=== PATIENT | male | born 1960 | race Caucasian/White ===

== ENCOUNTER 2017-02-15 10:14 | Emergency (ER) | payer BC ==
--- NOTE | 2017-02-15 10:28 | ED Physician Documentation ---
PD HPI ABD PAIN - Stated complaint Stated Complaint: VOMITING/ABD/BACK PX - Chief complaint Chief Complaint: Abd Pain - History obtained from History obtained from: Patient - History of Present Illness Timing - onset: Today Timing - duration: Hours (about 5 hours QUALITY DIRECTOR, abrupt onset.) Timing - details: Abrupt onset, Still present Quality: Aching, Sharp, Pain Location: RLQ Radiation: Right flank Improved by: No: Eating, Laying still, Vomiting, Position Worsened by: No: Eating, Moving, Breathing, Position Associated symptoms: Nausea, Vomiting, Testicular pain (but no swelling). No: Fever, Hematemesis, Diarrhea Similar symptoms before: Diagnosis (kidney stone in the past, once to ED and a few small ones passed at home.) Recently seen: Not recently seen Review of Systems Constitutional: denies: Fever, Chills Nose: denies: Rhinorrhea / runny nose, Congestion Throat: denies: Sore throat Cardiac: denies: Chest pain / pressure Respiratory: denies: Cough GI: reports: Nausea, Vomiting. denies: Abdominal Pain, Diarrhea : denies: Dysuria, Frequency Skin: denies: Rash, Lesions PD PAST MEDICAL HISTORY - Past Medical History Cardiovascular: Other Respiratory: None Endocrine/Autoimmune: None GI: GERD : None HEENT: None Psych: None Musculoskeletal: None Derm: Eczema - Present Medications Home Medications: Ambulatory Orders Medication Instructions Recorded Confirmed Aspirin [Aspir-Low] 81 mg ORAL DAILY 04/11/16 02/15/17 Niacin (Inositol Niacinate) 500 mg ORAL DAILY 04/11/16 02/15/17 [Niacin 500 mg Capsule] Omeprazole Magnesium [Prilosec] 2.5 mg PO DAILY 04/11/16 02/15/17 Naproxen [Naprosyn] 500 mg PO BID PRN #20 tablet 02/15/17 Ondansetron HCl [Zofran] 4 mg PO Q6H PRN #20 tablet 02/15/17 Oxycodone HCl/Acetaminophen 1 each PO Q6H PRN #20 tablet 02/15/17 [Percocet 5-325 mg Tablet] Tamsulosin [Flomax] 0.4 mg PO DAILY #5 capsule 02/15/17 - Allergies Allergies/Adverse Reactions: Allergies Allergy/AdvReac Type Severity Reaction Status Date / Time No Known Drug Allergies Allergy Verified 02/15/17 10:20 PD ED PE NORMAL - Vitals Vital signs reviewed: Yes - General General: Alert and oriented X 3, Well developed/nourished, Other (appears in marked pain, moving in position to try to find comfort. ) - HEENT HEENT: Pharynx benign - Neck Neck: Supple, no meningeal sign, No adenopathy - Cardiac Cardiac: RRR, No murmur - Respiratory Respiratory: Clear bilaterally - Abdomen Abdomen: Normal bowel sounds, Soft, Non tender, Non distended, No organomegaly - Male Male : Other (no inguinal hernias, testicle pain nor swelling. ) - Back Back: No spinal TTP, Other (right CVA tender to percussion. ) - Derm Derm: Normal color, Warm and dry, No rash - Extremities Extremities: Normal ROM s pain, No edema, No calf tenderness / cord - Neuro Neuro: Alert and oriented X 3, No motor deficit, Normal speech - Psych Psych: Normal mood Results - Vitals Vitals: Vital Signs - 24 hr 02/15/17 02/15/17 02/15/17 10: 12:27 13:25 Temperature 36.8 C Heart Rate 69 70 76 Respiratory 18 18 15 Rate Blood Pressure 162/102 H 150/83 H 142/78 H O2 Saturation 100 98 99 Oxygen O2 Source Room air - Labs Labs: Laboratory Tests 02/15/17 11:40 Urine Color YELLOW Urine Clarity CLEAR Urine pH 7.5 Ur Specific [place] 1.015 Urine Protein NEGATIVE Urine Glucose (UA) NEGATIVE Urine Ketones 15 H Urine Occult Blood LARGE H Urine Nitrite NEGATIVE Urine Bilirubin NEGATIVE Urine Urobilinogen 0.2 (NORMAL) Ur Leukocyte Esterase NEGATIVE Urine RBC TNTC H Urine WBC 0-3 Ur Squamous Epith Cells FEW Squamous Urine Bacteria Rare Urine Mucus Few Strands Ur Microscopic Review INDICATED Urine Culture Comments NOT INDICATED PD MEDICAL DECISION MAKING - ED course Complexity details: reviewed results, re-evaluated patient (pain down to mild/ tolerable level and he would like to head home. ), considered differential (has had kidney stones in past and feels similar. Has some blood in urine, no signs of infection. Pain improved with IV meds. pain is in flank but also RLQ abd, so presume stone is well down the ureter. So can treat empirically rather than CT/ etc. Shared decision process with patient and opted for treating as stone and giving it time. ), d/w patient Departure - Departure Disposition: 01 Home, Self Care Clinical Impression: Right sided abdominal pain, Ureterolithiasis Condition: Stable Record reviewed to determine appropriate education?: Yes Instructions: ED Stone Renal W Colic Follow-Up: Vicente Moran MD [Primary Care Provider] - [facility] [Provider Group] Prescriptions: Naproxen [Naprosyn] 500 mg PO BID PRN #20 tablet PRN Reason: Pain Ondansetron HCl [Zofran] 4 mg PO Q6H PRN #20 tablet PRN Reason: Nausea / Vomiting Oxycodone HCl/Acetaminophen [Percocet 5-325 mg Tablet] 1 each PO Q6H PRN #20 tablet PRN Reason: Pain Tamsulosin [Flomax] 0.4 mg PO DAILY #5 capsule Comments: Stay adequately hydrated. Naproxen 500 mg twice daily for inflammation. Tamsulosin daily to help reduce ureter spasms. Use Percocet if needed for pain with ondansetron if needed for nausea along with it. Recheck if not fully improved over the next couple of days. If not fully improved, follow-up with urology, call for an appointment. If he gets severe again, return to us for medications as needed. Discharge Date/Time: 02/15/17 13:35
[2017-02-15] MEDS ORDERED: KETOROLAC 30 MG/ML VIAL IVP STA (10:43)
[2017-02-15] MEDS ORDERED: fentaNYL 100 MCG/2 ML VIAL IVP STA ×2 (10:43→12:03)
[2017-02-15] MEDS ORDERED: SODIUM CHLORIDE 0.9% 1,000 ML IV ONE (10:43)
[2017-02-15] MEDS ORDERED: ONDANSETRON 4 MG/2 ML VIAL IVP STA (10:43)
[2017-02-15] MEDS ORDERED: fentaNYL 100 MCG/2 ML VIAL ONE ×2 (10:49→12:06)
[2017-02-15] MEDS ORDERED: SODIUM CHLORIDE FLUSH 0.9% 10 ML SYRINGE IVP ONE ×2 (10:49→12:05)
[2017-02-15] MEDS ORDERED: ONDANSETRON 4 MG/2 ML VIAL ONE (10:50)
[2017-02-15] MEDS ORDERED: KETOROLAC 30 MG/ML VIAL ONE (10:50)
[2017-02-15] MEDS ORDERED: TAMSULOSIN 0.4 MG CAPSULE PO STA (12:03)
[2017-02-15 12:07] LABS: BILIRUBIN,URINE NEGATIVE (NEGATIVE); PH,URINE 7.5 PH (5.0-7.5)
[2017-02-15 12:08] LABS: UA w/ MICROSCOPIC CHARGE YES
[2017-02-15] MEDS ORDERED: TAMSULOSIN 0.4 MG CAPSULE ONE (12:12)
[2017-02-15 12:24] LABS: UR CULTURE IF IND NOT INDICATED; WBC,URINE 0-3 /HPF (0-3)
[2017-02-15 13:39] VITALS: BP 142/78
== END 2017-02-15 13:35 | disposition home or self-care (01) ==
LOC: ED 10:14
DX: N20.1 Calculus of ureter (principal); Z79.82 Long term (current) use of aspirin
CPT/HCPCS: 81001; 96361; 96374; 96375; 96376; 99284; A9270; 81003; 87086

== ENCOUNTER 2019-11-12 09:50 | Outpatient (CLI) | payer BC | END 2019-11-12 23:59 | disposition home or self-care (01) | LOC: COV 09:50 | PROVIDERS: ATTEND Family Medicine | DX: R05 Cough (principal); J02.9 Acute pharyngitis, unspecified; R09.81 Nasal congestion; Z20.828 Contact with and (suspected) exposure to other viral communicable diseases ==

== ENCOUNTER 2020-01-15 12:58 | Outpatient (CLI) | payer BC | END 2020-01-15 12:59 | disposition home or self-care (01) | LOC: COV 12:58 | PROVIDERS: ATTEND Family Medicine | DX: Z20.828 Contact with and (suspected) exposure to other viral communicable diseases (principal) ==

== ENCOUNTER 2020-03-04 11:16 | Outpatient (CLI) | payer BC | END 2020-03-04 11:17 | disposition home or self-care (01) | LOC: COV 11:16 | PROVIDERS: ATTEND Family Medicine | DX: Z20.828 Contact with and (suspected) exposure to other viral communicable diseases (principal) ==

== ENCOUNTER 2020-04-20 10:39 | Outpatient (CLI) | payer BC ==
[2020-04-20 15:33] LABS: BASOPHILS # (AUTO) 0.1 10^3/uL (0.0-0.1); BASOPHILS % (AUTO) 0.9 %; EOSINOPHILS # (AUTO) 0.2 10^3/uL (0.0-0.7); HGB - HEMOGLOBIN 15.6 g/dL (14.0-18.0); LYMPHOCYTES # (AUTO) 1.2 10^3/uL (1.5-3.5); MEAN CORPUSCULAR HEMOGLOBIN 28.7 pg (27.0-31.0); MEAN CORPUSCULAR HGB CONC 33.1 g/dL (32.0-36.0); MEAN CORPUSCULAR VOLUME 86.8 fL (80.0-94.0); MEAN PLATELET VOLUME 10.2 fL (7.4-11.4); MONOCYTES # (AUTO) 0.5 10^3/uL (0.0-1.0); MONOCYTES % (AUTO) 8.3 %; NEUTROPHILS # (AUTO) 3.9 10^3/uL (1.5-6.6); NEUTROPHILS % (AUTO) 67.5 %; PLT - PLATELET COUNT 297 10^3/uL (130-450); RED BLOOD COUNT 5.44 10^6/uL (4.70-6.10); RED CELL DISTRIBUTION WIDTH 12.4 % (12.0-15.0); WHITE BLOOD COUNT 5.8 x10^3/uL (4.8-10.8)
[2020-04-20 15:43] LABS: ALBUMIN 4.4 g/dL (3.2-5.5); ALBUMIN/GLOBULIN RATIO 1.5 (1.0-2.2); ALKALINE PHOSPHATASE 99 IU/L (42-121); ALT ALANINE AMINOTRANSFERASE 34 IU/L (10-60); AST ASPARTATE AMINOTRANSFERASE 25 IU/L (10-42); BILIRUBIN,TOTAL 0.8 mg/dL (0.2-1.0); BUN - BLOOD UREA NITROGEN 14 mg/dL (6-20); CALCIUM 9.6 mg/dL (8.5-10.3); CARBON DIOXIDE - CO2 29 mmol/L (21-32); CHLORIDE 101 mmol/L (101-111); CHOL/HDL RATIO 5.9 (<5.0); CHOLESTEROL 207 mg/dL; CREATININE 1.1 mg/dL (0.6-1.2); GLUCOSE 94 mg/dL (70-100); HDL CHOLESTEROL 35 mg/dL; LDL CHOLESTEROL,CALCULATED 115 mg/dL; LDL/HDL RATIO 3.3 (<3.6); SODIUM 139 mmol/L (135-145); TOTAL PROTEIN 7.4 g/dL (6.7-8.2); VLDL CHOLESTEROL 57 mg/dL
== END 2020-04-20 10:40 | disposition home or self-care (01) ==
LOC: LAB.S 10:39
PROVIDERS: ATTEND Physician Assistant
DX: Z00.00 Encounter for general adult medical examination without abnormal findings (principal); N42.89 Other specified disorders of prostate; Z79.899 Other long term (current) drug therapy; I10 Essential (primary) hypertension; G43.909 Migraine, unspecified, not intractable, without status migrainosus; E78.9 Disorder of lipoprotein metabolism, unspecified; E78.5 Hyperlipidemia, unspecified
CPT/HCPCS: 36415; 80053; 80061; 83721; 84153; 84443; 85025

== ENCOUNTER 2020-05-05 10:45 | Outpatient (CLI) | payer BC ==
[2020-05-11 18:52] LABS: SPECIMEN SOURCE RENAL; STONE WEIGHT 0.056 g
== END 2020-05-05 23:59 ==
LOC: LAB.R 10:45
PROVIDERS: ATTEND Internal Medicine
DX: N20.0 Calculus of kidney (principal); R31.0 Gross hematuria
CPT/HCPCS: 82365

== ENCOUNTER 2020-05-06 08:45 | Outpatient (CLI) | payer BC ==
--- NOTE | 2020-05-06 09:35 | CT Report ---
PROCEDURE: Abdomen/Pelvis WO INDICATIONS: GROSS HEMATURIA TECHNIQUE: Noncontrast 5 mm thick sections acquired from the diaphragms to the symphysis. 5 mm coronal and sagi ttal reformats were then performed. For radiation dose reduction, the following was used: automated exposure control, adjustment of mA and/or kV according to patient size. COMPARISON: None. FINDINGS: Image quality: Excellent. ABDOMEN: Lung bases: Lung bases are clear. Heart size is normal. Solid organs: Liver and spleen are normal in size. Gallbladder is unremarkable. Pancreas is normal in contours. No adrenal nodules. There are innumerable bilateral nonobstructive renal stones. The l argest right renal stone is approximately 4 mm. Multiple 6 mm left renal stones are present. Again, t hese stones are innumerable. There is mild right hydronephrosis and mild dilatation of the proximal r ight ureter without visualization of a opaque ureteral stone. No ureteral stones are identified. Ther e are bilateral calcified phleboliths in the pelvis. Peritoneum and bowel: Small hiatal hernia. Unenhanced bowel loops demonstrate normal wall thickness and caliber. No free fluid or air. Extensive sigmoid diverticulosis without evidence of diverticuli tis. Nodes and vessels: No retroperitoneal or mesenteric adenopathy by size criteria. Aorta and inferior vena cava are normal in caliber. Miscellaneous: No ventral hernias. PELVIS: Genitourinary: Bladder wall thickness is normal. Miscellaneous: Small bilateral fat-containing inguinal hernias. No inguinal adenopathy. Bones: No suspicious bony lesions. No vertebral body compression fractures. IMPRESSION: 1. There are innumerable bilateral nonobstructing renal stones. 2. There is mild right hydronephrosis and proximal right hydroureter without identification of a radi opaque ureteral stone. 3. Extensive sigmoid diverticulosis. 4. Small bilateral fat-containing hernias. Comment: Consider CT IVP to evaluate the right ureter. Reviewed by: Kishor Pacheco MD on 05/06/2020 9:33 AM [facility] Approved by: Kishor Pacheco MD on 05/06/2020 9:33 AM [facility] Station ID: [id number]
== END 2020-05-06 08:46 | disposition home or self-care (01) ==
LOC: DI 08:45
PROVIDERS: ATTEND Physician Assistant Medical
DX: R31.0 Gross hematuria (principal); N20.0 Calculus of kidney; N13.30 Unspecified hydronephrosis
CPT/HCPCS: 74176

== ENCOUNTER 2020-06-25 09:21 | Outpatient (CLI) | payer BC ==
[2020-06-25] MEDS ORDERED: IOVERSOL 320 100 ML VIAL IVP ONE ×2 (09:38→09:46)
--- NOTE | 2020-06-25 13:33 | CT Report ---
PROCEDURE: IVP INDICATIONS: HX OF GROSS HEMATURIA, NEPHROLITHIASIS CONTRAST: IV CONTRAST: Optiray 320 ml: 140 PO CONTRAST: *NO PO CONTRAST TECHNIQUE: After the administration of intravenous contrast, 5 mm thick sections acquired from the diaphragms to the symphysis. 5 mm thick coronal and sagittal reformats were acquired. For radiation dose reducti on, the following was used: automated exposure control, adjustment of mA and/or kV according to berna ent size. COMPARISON: CT abdomen/pelvis 05/06/2020 reviewed.. FINDINGS: Image quality: Excellent. Lung bases: Lung bases are clear. Heart size is normal. Urinary system: Both kidneys are normal in size and enhancement. Contrast-filled renal calyces are normal in morphology, but there is a 4 mm nonobstructive calculus at the proximal ureter on the left, seen on CT series 4 image 48. Additional urinary tract stones are seen as was previously the case wi thin the collecting system of each kidney, ranging from 1 to 3 mm in diameter.. Contrast filled port ions of both ureters are normal in caliber. Bladder wall thickness is normal anteriorly but there ap pears to be a polypoid mass at the posterior bladder wall, centered just to the right of midline aria uring approximately 1.2 x 1.5 cm.. Solid organs: Liver and spleen are normal in size and enhancement. Gallbladder appears normal Bili tony system is non dilated. Pancreas enhances normally. No adrenal nodules. Peritoneum and bowel: Bowel loops demonstrate normal wall thickness and caliber. No free fluid or a ir. Nodes and vessels: No retroperitoneal or mesenteric adenopathy by size criteria. Aorta and inferior vena cava are normal in size. Abdominal wall: No ventral hernias. Pelvis: No pathologic free pelvic fluid. No inguinal hernias or adenopathy. Bones: No suspicious bony lesions. No vertebral body compression fractures. IMPRESSION: Small nonobstructive bilateral renal collecting system calculi have been present, slight ly greater in number on the left than the right, but currently there is a 4 x 4 mm calculus within th e proximal ureter of the left kidney, which is not producing appreciable asymmetric dilatation of the left collecting system and renal pelvis at this time. This calculus was not located in that position 05/06/2020. Polypoid masslike structure seen at the posterior midline bladder wall measuring 1.2 x 1.5 cm, and po ssibly a manifestation of urothelial malignancy. Urology consultation and retrograde cystoscopy likel y is warranted given this appearance. Reviewed by: Bassam Brooks MD on 06/25/2020 1:32 PM PST Approved by: Bassam Brooks MD on 06/25/2020 1:32 PM PST Station ID: [id number]
== END 2020-06-25 09:22 | disposition home or self-care (01) ==
LOC: DI 09:21
PROVIDERS: ATTEND Urology
DX: N20.2 Calculus of kidney with calculus of ureter (principal); R31.0 Gross hematuria; N32.89 Other specified disorders of bladder
CPT/HCPCS: 74178; Q9967

== ENCOUNTER 2020-10-02 11:20 | Outpatient (CLI) | payer BC ==
[2020-10-02 11:35] LABS: BASOPHILS # (AUTO) 0.1 10^3/uL (0.0-0.1); BASOPHILS % (AUTO) 0.9 %; EOSINOPHILS # (AUTO) 0.1 10^3/uL (0.0-0.7); EOSINOPHILS % (AUTO) 2.2 %; HCT - HEMATOCRIT 42.8 % (42.0-52.0); HGB - HEMOGLOBIN 14.5 g/dL (14.0-18.0); MEAN CORPUSCULAR HEMOGLOBIN 28.5 pg (27.0-31.0); MEAN CORPUSCULAR HGB CONC 33.9 g/dL (32.0-36.0); MEAN CORPUSCULAR VOLUME 84.1 fL (80.0-94.0); MEAN PLATELET VOLUME 9.3 fL (7.4-11.4); MONOCYTES # (AUTO) 0.6 10^3/uL (0.0-1.0); MONOCYTES % (AUTO) 9.2 %; NEUTROPHILS # (AUTO) 4.6 10^3/uL (1.5-6.6); NEUTROPHILS % (AUTO) 71.2 %; PLT - PLATELET COUNT 254 10^3/uL (130-450); RED BLOOD COUNT 5.09 10^6/uL (4.70-6.10); RED CELL DISTRIBUTION WIDTH 12.6 % (12.0-15.0); WHITE BLOOD COUNT 6.5 x10^3/uL (4.8-10.8)
== END 2020-10-02 11:21 | disposition home or self-care (01) ==
LOC: LAB 11:20
DX: Z01.812 Encounter for preprocedural laboratory examination (principal); C67.9 Malignant neoplasm of bladder, unspecified; Z20.822 Contact with and (suspected) exposure to COVID-19
CPT/HCPCS: 36415; 85025

== ENCOUNTER 2020-10-02 13:59 | Outpatient (CLI) | payer BC | END 2020-10-02 14:00 | disposition home or self-care (01) | LOC: COV 13:59 | PROVIDERS: ATTEND Internal Medicine Medical Oncology | DX: Z01.812 Encounter for preprocedural laboratory examination (principal); C67.9 Malignant neoplasm of bladder, unspecified; Z20.822 Contact with and (suspected) exposure to COVID-19 ==

== ENCOUNTER 2021-02-05 15:11 | Inpatient (IN) | payer BC ==
[2021-02-05 15:42] LABS: BASOPHILS # (AUTO) 0.1 10^3/uL (0.0-0.1); BASOPHILS % (AUTO) 0.3 %; HCT - HEMATOCRIT 28.6 % (42.0-52.0); HGB - HEMOGLOBIN 9.2 g/dL (14.0-18.0); LYMPHOCYTES # (AUTO) 0.3 10^3/uL (1.5-3.5); LYMPHOCYTES % (AUTO) 1.3 %; MEAN CORPUSCULAR HEMOGLOBIN 28.7 pg (27.0-31.0); MEAN CORPUSCULAR HGB CONC 32.2 g/dL (32.0-36.0); MEAN CORPUSCULAR VOLUME 89.1 fL (80.0-94.0); MEAN PLATELET VOLUME 7.8 fL (7.4-11.4); MONOCYTES # (AUTO) 1.2 10^3/uL (0.0-1.0); MONOCYTES % (AUTO) 5.4 %; NEUTROPHILS # (AUTO) 19.9 10^3/uL (1.5-6.6); NEUTROPHILS % (AUTO) 91.9 %; PLT - PLATELET COUNT 460 10^3/uL (130-450); RED BLOOD COUNT 3.21 10^6/uL (4.70-6.10); RED CELL DISTRIBUTION WIDTH 12.8 % (12.0-15.0); WHITE BLOOD COUNT 21.7 x10^3/uL (4.8-10.8)
[2021-02-05 15:44] LABS: SLIDE REVIEW? Indicated
--- NOTE | 2021-02-05 15:50 | XRAY Report ---
PROCEDURE: Chest 1 View X-Ray INDICATIONS: Chest pain TECHNIQUE: One view of the chest was acquired. COMPARISON: FINDINGS: Surgical changes and devices: Right chest wall central venous port catheter. Lungs and pleura: No pleural effusions or pneumothorax. Lungs are clear. Mediastinum: Mediastinal contours appear normal. Heart size is normal. Bones and chest wall: No suspicious bony lesions. Overlying soft tissues appear unremarkable. IMPRESSION: No acute finding. Reviewed by: Enrique Chua MD on 02/05/2021 3:49 PM PDT Approved by: Enrique Chua MD on 02/05/2021 3:49 PM PDT Station ID: [id number]
[2021-02-05 15:55] LABS: ALBUMIN 3.6 g/dL (3.2-5.5); BILIRUBIN,TOTAL 0.6 mg/dL (0.2-1.0); CALCIUM 9.2 mg/dL (8.5-10.3); CREATININE 1.2 mg/dL (0.6-1.2); POTASSIUM 4.2 mmol/L (3.5-5.0); TOTAL PROTEIN 7.1 g/dL (6.7-8.2)
[2021-02-05] MEDS ORDERED: ACETAMINOPHEN 325 MG TABLET PO STA (15:55)
--- NOTE | 2021-02-05 15:55 | ED Physician Documentation ---
History of Present Illness - Stated complaint Stated Complaint: POST OP PX/FEVER - Chief complaint Chief Complaint: General - History obtained from History obtained from: Patient - Additonal information Additional information: 60-year-old gentleman who had chemotherapy and more recently a neobladder at the [facility] 17 days ago. 2 days ago he had a stress test of the bladder with contrast infusion and reportedly had a small contrast leak so both Damon and suprapubic catheters were left in. He was supposed to be on preoperative antibiotics but due to miscommunication took a dose of Cipro about an hour after the procedure and another one that night. Last night started to develop shaking chills and then developed a fever of 101.7. Took a single dose of Cipro prior to arrival at the advice of the urologic nurse practitioner. Review of Systems Ten Systems: 10 systems reviewed and negative Constitutional: reports: Fever, Chills, Myalgias, Reviewed and negative Eyes: reports: Reviewed and negative Nose: reports: Rhinorrhea / runny nose (chronic) Throat: reports: Reviewed and negative Cardiac: reports: Reviewed and negative PD PAST MEDICAL HISTORY - Past Medical History Cardiovascular: Other Respiratory: None Endocrine/Autoimmune: None GI: GERD : None HEENT: None Psych: None Musculoskeletal: None Derm: Eczema - Past Surgical History Past Surgical History: Yes - Present Medications Home Medications: Ambulatory Orders Medication Instructions Recorded Confirmed Acetaminophen [Acetaminophen Extra 1,000 mg PO Q6HR PRN 02/05/21 02/05/21 Strength] Aspirin/Acetaminophen/Caffeine 1 tab PO Q4HR PRN 02/05/21 02/05/21 [Excedrin Migraine Caplet] Clobetasol 0.05% Oint [Temovate 1 applic TOP DAILY 02/05/21 02/05/21 0.05% Oint] Enoxaparin [Lovenox] 0.4 mg SQ DAILY 02/05/21 02/05/21 Ibuprofen [Motrin] 600 mg PO Q6HR 02/05/21 02/05/21 Omeprazole Magnesium 20 mg PO DAILY 02/05/21 02/05/21 Prochlorperazine Maleate 10 mg PO Q6HR PRN 02/05/21 02/05/21 [Compazine] Senna [Senokot] 2 tab PO BID 02/05/21 02/05/21 Tbo-Filgrastim [Granix] 0.8 ml SQ DAILY 02/05/21 02/05/21 dexAMETHasone [Decadron] 8 mg PO DAILY 02/05/21 02/05/21 ondansetron HCL [Ondansetron HCl] 8 mg PO Q8HR PRN 02/05/21 02/05/21 oxyCODONE [Roxicodone] 5 mg PO Q8HR PRN 02/05/21 02/05/21 polyethylene glycoL 3350 [Miralax] 17 gm PO DAILY PRN 02/05/21 02/05/21 - Allergies Allergies/Adverse Reactions: Allergies Allergy/AdvReac Type Severity Reaction Status Date / Time No Known Drug Allergies Allergy Verified 02/15/17 10:20 - Social History Does the pt smoke?: No Smoking Status: Never smoker Does the pt drink ETOH?: Yes Does the pt have substance abuse?: No - Immunizations Immunizations are current?: Yes - POLST Patient has POLST: No PD ED PE NORMAL - Vitals Vital signs reviewed: Yes - General General: Alert and oriented X 3, No acute distress - HEENT HEENT: PERRL, EOMI - Neck Neck: Supple, no meningeal sign, No bony TTP - Cardiac Cardiac: RRR, No murmur - Respiratory Respiratory: No respiratory distress, Clear bilaterally - Abdomen Abdomen: Other (He has both Damon and suprapubic catheters in place, urine is fairly clear. Surgical incisions are clean dry and intact, minimal pelvic tenderness without surgical signs.) - Back Back: No CVA TTP, No spinal TTP - Derm Derm: Normal color, Warm and dry - Extremities Extremities: No edema, No calf tenderness / cord - Neuro Neuro: Alert and oriented X 3, Normal speech Results - Vitals Vitals: Vital Signs - 24 hr 02/05/21 02/05/21 02/05/21 15:13 16:10 16:28 Temperature 37.2 C 37.2 C Heart Rate 118 H 119 H Respiratory 20 16 Rate Blood Pressure 137/69 H 159/81 H O2 Saturation 96 96 02/05/21 18:00 Temperature Heart Rate 119 H Respiratory 16 Rate Blood Pressure 126/59 L O2 Saturation 100 Oxygen O2 Source Room air - Labs Labs: Laboratory Tests 02/05/21 02/05/21 02/05/21 15:36 15:36 15:36 WBC 21.7 H RBC 3.21 L Hgb 9.2 L Hct 28.6 L MCV 89.1 MCH 28.7 MCHC 32.2 RDW 12.8 Plt Count 460 H MPV 7.8 Neut # (Auto) 19.9 H Lymph # (Auto) 0.3 L [place] # (Auto) 1.2 H Eos # (Auto) 0.0 Baso # (Auto) 0.1 Absolute Nucleated RBC 0.00 Nucleated RBC % 0.0 Manual Slide Review Indicated Platelet Estimate INCREASED (>450,000) Platelet Morphology NORMAL APPEARANCE RBC Morph Micro Appear NORMAL APPEARANCE Sodium 130 L Potassium 4.2 Chloride 95 L Carbon Dioxide 23 Anion Gap 12.0 BUN 21 H Creatinine 1.2 Estimated GFR (MDRD) 62 L Glucose 128 H Lactic Acid 1.4 Calcium 9.2 Total Bilirubin 0.6 AST 25 ALT 23 Alkaline Phosphatase 138 H Total Protein 7.1 Albumin 3.6 Globulin 3.5 Albumin/Globulin Ratio 1.0 Urine Color Urine Clarity Urine pH Ur Specific [place] Urine Protein Urine Glucose (UA) Urine Ketones Urine Occult Blood Urine Nitrite Urine Bilirubin Urine Urobilinogen Ur Leukocyte Esterase Urine RBC Urine WBC Ur Squamous Epith Cells Urine Bacteria Urine Culture Comments Nasal Adenovirus (PCR) Nasal B. parapertussis DNA (PCR) Nasal Coronavir 229E PCR Nasal Coronavir HKU1 PCR Nasal Coronavir NL63 PCR Nasal Coronavir OC43 PCR Nasal Enterovir/Rhinovir PCR Nasal Influenza B PCR Nasal Influenza A PCR Nasal Parainfluen 1 PCR Nasal Parainfluen 2 PCR Nasal Parainfluen 3 PCR Nasal Parainfluen 4 PCR Nasal RSV (PCR) Nasal B.pertussis DNA PCR Nasal C.pneumoniae (PCR) [place] Human Metapneumo PCR Nasal M.pneumoniae (PCR) Nasal SARS-CoV-2 (PCR) 02/05/21 02/05/21 16:01 16:29 WBC RBC Hgb Hct MCV MCH MCHC RDW Plt Count MPV Neut # (Auto) Lymph # (Auto) [place] # (Auto) Eos # (Auto) Baso # (Auto) Absolute Nucleated RBC Nucleated RBC % Manual Slide Review Platelet Estimate Platelet Morphology RBC Morph Micro Appear Sodium Potassium Chloride Carbon Dioxide Anion Gap BUN Creatinine Estimated GFR (MDRD) Glucose Lactic Acid Calcium Total Bilirubin AST ALT Alkaline Phosphatase Total Protein Albumin Globulin Albumin/Globulin Ratio Urine Color YELLOW Urine Clarity CLOUDY Urine pH 7.0 Ur Specific [place] 1.010 Urine Protein 30 H Urine Glucose (UA) NEGATIVE Urine Ketones NEGATIVE Urine Occult Blood LARGE H Urine Nitrite NEGATIVE Urine Bilirubin NEGATIVE Urine Urobilinogen 0.2 (NORMAL) Ur Leukocyte Esterase LARGE H Urine RBC TNTC H Urine WBC >25 H Ur Squamous Epith Cells NONE SEEN Urine Bacteria Few Urine Culture Comments INDICATED Nasal Adenovirus (PCR) NOT DETECTED Nasal B. parapertussis DNA (PCR) NOT DETECTED Nasal Coronavir 229E PCR NOT DETECTED Nasal Coronavir HKU1 PCR NOT DETECTED Nasal Coronavir NL63 PCR NOT DETECTED Nasal Coronavir OC43 PCR NOT DETECTED Nasal Enterovir/Rhinovir PCR NOT DETECTED Nasal Influenza B PCR NOT DETECTED Nasal Influenza A PCR NOT DETECTED Nasal Parainfluen 1 PCR NOT DETECTED Nasal Parainfluen 2 PCR NOT DETECTED Nasal Parainfluen 3 PCR NOT DETECTED Nasal Parainfluen 4 PCR NOT DETECTED Nasal RSV (PCR) NOT DETECTED Nasal B.pertussis DNA PCR NOT DETECTED Nasal C.pneumoniae (PCR) NOT DETECTED [place] Human Metapneumo PCR NOT DETECTED Nasal M.pneumoniae (PCR) NOT DETECTED Nasal SARS-CoV-2 (PCR) NOT DETECTED - Rads (name of study) 1v chest Radiology: EMP read contemporaneously (NAD) CT AP Radiology: EMP read contemporaneously PD MEDICAL DECISION MAKING - ED course ED course: 60-year-old gentleman 17 days out from a neobladder for bladder cancer presents 2 days after a Cystogram with contrast extravasation now with septic criteria. He is not in septic shock though. Case discussed by phone with Nick Ayala, the nurse practitioner that is aware of his case and agrees with CT scanning to rule out pelvic abscess, but if there is no pelvic abscess presents agrees with admission but there is really no need for urology intervention. He was cultured up and given Zosyn. He does have evidence of pyuria and a white count of 21,000. Also tachycardic. CT results reviewed, sounds like normal postoperative changes. Consideration was given to the radiologist report of free gas in the subcutaneous tissues. Clinically this gentleman really does not have anything to suggest a necrotizing soft tissue infection. He has minimal to no abdominal pain. In fact his only pain here was a headache which was what he was medicated for. was updated by phone and appreciated and I spoke with Dr. Ocampo for admission at approximately 6:20 PM. - Sepsis Event Sepsis Onset Date: 02/05/21 Sepsis Onset Time: 17:00 Current Stage of Sepsis: Sepsis Initial Hypotension: Not hypotensive Possible source of Sepsis: Genitourinary Mental/Cognitive Status: Alert/Oriented X3, Normal for patient Reason for not giving 30ml/kg crystalloid fluids: Not in septic shock Capillary refill: Less than 2 seconds Peripheral Pulse Strength: 3+ Normal Peripheral Pulse Location: Radial Departure - Departure Disposition: 66 [facility] DC/Xfer Clinical Impression: Complicated UTI (urinary tract infection) Sepsis Qualifiers: Sepsis type: sepsis due to unspecified organism Sepsis acute organ dysfunction status: without acute organ dysfunction Qualified Code(s): A41.9 - Sepsis, unspecified organism Condition: Serious Discharge Date/Time: 02/05/21 19:00
[2021-02-05] MEDS ORDERED: SODIUM CHLORIDE 0.9% 1,000 ML IV STA ×2 (16:07→18:30)
[2021-02-05 16:08] LABS: BILIRUBIN,URINE NEGATIVE (NEGATIVE); GLUCOSE, URINE (UA) NEGATIVE (NEGATIVE); KETONES,URINE (UA) NEGATIVE (NEGATIVE); LEUKOCYTE ESTERASE, URINE LARGE (NEGATIVE); NITRITE,URINE NEGATIVE (NEGATIVE); OCCULT BLOOD,URINE LARGE (NEGATIVE); PROTEIN,URINE 30 mg/dL (NEGATIVE); UROBILINOGEN,URINE 0.2 (NORMAL) E.U./dL (NORMAL)
[2021-02-05] MEDS ORDERED: PIPERACILLIN/TAZOBACTAM 3.375 GM in SODIUM CHLORIDE 0.9% MINIBAG 100 ML IV STA (16:17)
[2021-02-05 16:22] LABS: CLARITY,URINE CLOUDY (CLEAR); RBC,URINE TNTC /HPF (0-5); WBC,URINE >25 /HPF (0-3)
[2021-02-05 16:23] LABS: BACTERIA,URINE Few /HPF (None Seen); SQUAMOUS EPITHELIAL CELL,UR NONE SEEN (<= Few)
[2021-02-05] MEDS ORDERED: IOVERSOL 320 100 ML VIAL IVP ONE ×2 (16:32→17:38)
[2021-02-05 16:36] LABS: PLATELET ESTIMATE, MANUAL INCREASED (>450,000) (NORMAL); PLATELET MORPHOLOGY NORMAL APPEARANCE (NORMAL); RBC MORPHOLOGY (MULTIPLE) NORMAL APPEARANCE (NORMAL)
[2021-02-05 17:46] LABS: B. PARAPERTUSSIS- RESP PCR PAN NOT DETECTED; B. PERTUSSIS- RESP PCR PANEL NOT DETECTED; C. PNEUMONIAE- RESP PCR PANEL NOT DETECTED; CORONAVIRUS 229E-RESP PCR NOT DETECTED; CORONAVIRUS HKU1-RESP PCR NOT DETECTED; CORONAVIRUS NL63-RESP PCR NOT DETECTED; CORONAVIRUS OC43-RESP PCR NOT DETECTED; HUMAN METAPNEUMOVIRUS NOT DETECTED; INFLUENZA A- RESP PCR PANEL NOT DETECTED; INFLUENZA B - RESP PCR PANEL NOT DETECTED; M. PNEUMONIAE- RESP PCR PANEL NOT DETECTED; PARAINFLUENZA VIRUS 1 NOT DETECTED; PARAINFLUENZA VIRUS 2 NOT DETECTED; PARAINFLUENZA VIRUS 3 NOT DETECTED; PARAINFLUENZA VIRUS 4 NOT DETECTED; RHINOVIRUS/ENTEROVIRUS NOT DETECTED; RSV- RESP PCR PANEL NOT DETECTED; SARS-CoV-2 -RESP PCR PANEL NOT DETECTED
--- NOTE | 2021-02-05 17:56 | CT Report ---
PROCEDURE: Abdomen/Pelvis W INDICATIONS: neobladder, ? pelvic abscess. IV only CONTRAST: IV CONTRAST: Optiray 320 ml: 100 PO CONTRAST: *NO PO CONTRAST TECHNIQUE: After the administration of IV contrast, 5 mm thick sections acquired from the diaphragms to the symp hysis. 5 mm thick coronal and sagittal reformats were acquired. For radiation dose reduction, the f ollowing was used: automated exposure control, adjustment of mA and/or kV according to patient size. COMPARISON: CT dated 05/06/2020 moderate hiatal hernia. FINDINGS: Image quality: Excellent. ABDOMEN: Lung bases: Lung bases are clear. Heart size is normal. Solid organs: Liver and spleen are normal in size and enhancement. Gallbladder Biliary system is non dilated. Pancreas enhances normally. No adrenal nodules. Kidneys demonstrate normal size an d enhancement. There is mild bilateral hydronephrosis. Multiple nonobstructing bilateral intrarenal c alculi are present, as before. Mild bilateral ureteral dilatation is present. Peritoneum and bowel: Bowel loops demonstrate normal wall thickness and caliber. No free fluid or a ir. Anastomotic surgical clips within the right lower quadrant bowel loops. Right anterior pelvic os chaparrita is present. Nodes and vessels: No retroperitoneal or mesenteric adenopathy by size criteria. Aorta and inferior vena cava are normal in size. Miscellaneous: No ventral hernias. Moderate subcutaneous gas within the anterior and lateral abdomi nal rodriguez. PELVIS: Genitourinary: Pelvic neobladder is present which demonstrates a Damon catheter within its lumen. Miscellaneous: No inguinal hernias or adenopathy. There is moderate soft tissue gas within the subc utaneous fat of the anterior pelvis, bilateral proximal thighs anteriorly, as well as extending into the visualized portions of the scrotum. Bones: No suspicious bony lesions. No vertebral body compression fractures. IMPRESSION: 1. Postsurgical sequelae. 2. No obstructing bilateral renal calculi. 3. New mild left hydronephrosis. No change in mild right hydronephrosis. 4. Subcutaneous soft tissue gas within the abdomen and pelvis anteriorly, extending into the proximal thighs and scrotum. These findings are consistent with postsurgical sequelae of there is a history o f recent surgery. However, infection with a gas producing organism could also produce this appearance in the appropriate clinical setting. Clinical correlation recommended. 5. Hiatal hernia. Reviewed by: Suzy Salvador MD on 02/05/2021 5:55 PM PDT Approved by: Suzy Salvador MD on 02/05/2021 5:55 PM PDT Station ID: [id number]
[2021-02-05] MEDS ORDERED: HYDROmorphone 1 MG/ML CARPUJECT IVP STA (18:02)
[2021-02-05] MEDS ORDERED: SODIUM CHLORIDE FLUSH 0.9% 10 ML SYRINGE IVP PRN (18:33)
--- NOTE | 2021-02-05 19:06 | HISTORY & PHYSICAL EXAMINATION ---
Chief Complaint - Chief Complaint Chief Complaint: fever History of Present Illness - Admitted From Admitted From:: [facility] - History Obtained From Records Reviewed: yes History obtained from: patient and ED physician Exam Limitations: somnolent - History of Present Illness HPI Comment/Other: Patient is a 60-year-old male who presented to [facility] ED with a fever. He has history of bladder cancer on chemotherapy and recently underwent bladder resection with neobladder at the [facility] 17 days ago. He was in the hospital at [facility] for 1 week after the procedure. 2 days ago he had a follow-up appointment with his neurologist where a stress test of the bladder with contrast infusion was done. It is reported that there was a small leak so both Villafuerte and suprapubic catheters were left in place. Last night the patient started experiencing chills and had a fever with a temperature 101.7F. He took a dose of Cipro and then presented to the emergency department at the advice of the nurse practitioner with the urology group. In the ED work-up included a CBC which showed a white blood cell count of 21.7. T-max so far in the hospital is 38.7C. He also had a CT of the abdomen pelvis which showed postsurgical sequelae. There was no obstructing bilateral renal calculi. New mild left hydronephrosis. No change in mild right hydronephrosis. Subcutaneous soft tissue gas within the abdomen and pelvis anteriorly, extending into the proximal thigh and scrotum. It was thought that this findings are consistent with postsurgical sequela in recent history of surgery. However, infection with a gas producing organism could also produce this appearance in the appropriate clinical surgery. Urine analysis also showed large leukocyte esterase too numerous to count red blood cells and greater than 25 WBCs. Few bacteria were also noted. The urine was noted to be cloudy. He was started on Zosyn and presented for admission for further treatment. At bedside he is very somnolent due to recent administration of dilaudid. He denied chest pain or dyspnea. He was shivering, reported mild nausea and abdominal pain at his surgical site History - Past Medical History Cardiovascular: reports: Other Respiratory: reports: None Endocrine/Autoimmune: reports: None GI: reports: GERD : reports: None HEENT: reports: None Psych: reports: None Musculoskeletal: reports: None Derm: reports: Eczema MRSA Hx?: No - Past Surgical History /GLASS [employer]MENT [employer]ENDER: reports: Other (bladder resection) - Family & Social History Family History Comment/Other: Mother had breast cancer status post left mastectomy. Patient's father had history of kidney stones. He also had coronary artery disease and had a CABG. He in 2019 at age 80 from complications of diverticulitis. Social History Notes: Patient does not smoke tobacco products, use recreational substances or alcohol. - POLST Patient has POLST: No POLST Status: DNR Meds/Allgy - Home Medications Home Medications: Ambulatory Orders Medication Instructions Recorded Confirmed Acetaminophen [Acetaminophen Extra 1,000 mg PO Q6HR PRN 02/05/21 02/05/21 Strength] Aspirin/Acetaminophen/Caffeine 1 tab PO Q4HR PRN 02/05/21 02/05/21 [Excedrin Migraine Caplet] Clobetasol 0.05% Oint [Temovate 1 applic TOP DAILY 02/05/21 02/05/21 0.05% Oint] Enoxaparin [Lovenox] 0.4 mg SQ DAILY 02/05/21 02/05/21 Ibuprofen [Motrin] 600 mg PO Q6HR 02/05/21 02/05/21 Omeprazole Magnesium 20 mg PO DAILY 02/05/21 02/05/21 Prochlorperazine Maleate 10 mg PO Q6HR PRN 02/05/21 02/05/21 [Compazine] Senna [Senokot] 2 tab PO BID 02/05/21 02/05/21 Tbo-Filgrastim [Granix] 0.8 ml SQ DAILY 02/05/21 02/05/21 dexAMETHasone [Decadron] 8 mg PO DAILY 02/05/21 02/05/21 ondansetron HCL [Ondansetron HCl] 8 mg PO Q8HR PRN 02/05/21 02/05/21 oxyCODONE [Roxicodone] 5 mg PO Q8HR PRN 02/05/21 02/05/21 polyethylene glycoL 3350 [Miralax] 17 gm PO DAILY PRN 02/05/21 02/05/21 - Allergies Allergies/Adverse Reactions: Allergies Allergy/AdvReac Type Severity Reaction Status Date / Time No Known Drug Allergies Allergy Verified 02/15/17 10:20 Review of Systems - Constitutional Constitutional: reports: Fatigue, Fever, Chills, Weakness - Eyes Eyes: denies: Pain, Vision loss - Ears, Nose & Throat Ears, Nose & Throat: denies: Ear pain, Vertigo, Sore throat - Cardiovascular Cariovascular: denies: Chest pain, Edema, Lightheadedness, Syncope - Respiratory Respiratory: denies: Cough, Sputum production, Wheezing, SOB at rest, SOB with exertion - Gastrointestinal Gastrointestinal: reports: Abdominal pain, Nausea, Vomiting, Reflux/heartburn. denies: Abdominal distention, Constipation - Genitourinary Genitourinary: reports: Other (villafuerte and suprapubic catheter in place). denies: Flank pain - Musculoskeletal Musculoskeletal: denies: Muscle pain, Back pain, Muscle aches - Integumentary Integumentary: denies: Rash, Pruritis, Lesions - Neurological Neurological: denies: Focal weakness, Headache - Psychiatric Psychiatric: denies: Depression, Anxiety - Endocrine Endocrine: denies: Polyuria, Polydypsia - Hematologic/Lymphatic Hematologic/Lymphatic: reports: Bruising. denies: Anemia, Petechiae Prior Level of Functionality: Patient is independent of activities of daily living. Exam - Vital Signs Vital Signs: Vital Signs x48h Temp Pulse Resp BP Pulse Ox 02/05/21 18:00 119 H 16 126/59 L 100 02/05/21 16:28 119 H 16 159/81 H 96 02/05/21 16:10 37.2 C 02/05/21 15:13 37.2 C 118 H 20 137/69 H 96 - Physical Exam General Appearance: positive: Mild distress, Moderate distress, Other (somnolent) Eyes Bilateral: positive: PERRL, EOMI ENT: positive: No signs of dehydration Neck: positive: No JVD, Trachea midline Respiratory: positive: No respiratory distress, Breath sounds nml. negative: Wheezes, Rales, Rhonchi Cardiovascular: positive: No murmur, Tachycardia Abdomen: positive: No distention, Tenderness (at surgical sites) Back: positive: Nml inspection Skin: positive: No rash, Warm, Dry Extremities: positive: Full ROM, Nml appearance, No pedal edema Neurologic/Psychiatric: positive: Oriented x3, Mood/affect nml Sepsis Event Note (H) - Evaluation Current Stage of Sepsis: Sepsis Possible source of Sepsis: positive: Genitourinary - Sepsis Criteria Sepsis Criteria: Recorded Temperature greater than 38.3C or Less than 36C, Recorded Heart Rate greater than 90 bpm, WBC count greater than 12,000 or less than 4000 Conclusion/Plan - Problem List (1) Sepsis Conclusion/Plan: 2/2 a complicated UTI. WBC 21, Temp 38.7 degree Celsius, Pulse 121 Blood and urine cultures pending. Patient received a 1 L bolus of IV hydration in the ED. Another 2L bolus of normal saline administered on the Med/Surg floor. We will continue IV fluids at 150ml/hr with normal saline Tylenol and ibuprofen prn for fever Zosyn 3.375g IV q6hrs Qualifiers: Sepsis type: sepsis due to unspecified organism Sepsis acute organ dysfunction status: without acute organ dysfunction Qualified Code(s): A41.9 - Sepsis, unspecified organism (2) Complicated UTI (urinary tract infection) Conclusion/Plan: s/p bladder resection and neobladder On Zosyn 3.375g IV q6hrs (3) Bladder cancer Conclusion/Plan: s/p chemotherapy. s/p bladder resection and neobladder 17 days ago with urethral villafuerte and suprapubic catheters in place Draining well. Patient self-irrigating Pain management with tylenol, oxycodone and/or dilaudid prn. Patient will follow up with urology in the outpatient setting - Lab Results Fish Bones: 02/06/21 01:50 02/06/21 01:50 Core Measures - Anticipated LOS I expect patient to be DC'd or transferred within 96 hours.: Yes - DVT/VTE - Prophylaxis VTE/DVT Device ordered at admit?: Yes VTE/DVT Prophylaxis med ordered at admit?: Yes
[2021-02-05] MEDS ORDERED: polyethylene glycoL 3350 17 GM PACKET PO PRN (19:11)
[2021-02-05] MEDS ORDERED: oxyCODONE 5 MG TABLET PO PRN (19:12)
[2021-02-05] MEDS ORDERED: SODIUM CHLORIDE 0.9% 1,000 ML IV SCH (20:00)
[2021-02-05] MEDS ORDERED: PROMETHAZINE 25 MG TABLET PO PRN (20:00)
[2021-02-05] MEDS ORDERED: ENOXAPARIN 40 MG/0.4 ML SYRINGE SUBQ STA (21:09)
[2021-02-05] MEDS: SENNA 8.6 MG TABLET PO SCH (21:25)
[2021-02-05] MEDS: IBUPROFEN 400 MG TABLET PO PRN (21:25)
[2021-02-05] MEDS ORDERED: SODIUM CHLORIDE 0.9% 500 ML IV ONE (21:36)
[2021-02-05] MEDS: CALCIUM CARBONATE CHEW 500 MG TABLET PO PRN (21:55)
[2021-02-05] MEDS ORDERED: SODIUM CHLORIDE 0.9% 1,000 ML IV ONE ×2 (22:06→23:49)
[2021-02-05] MEDS: SODIUM CHLORIDE 0.9% 1,000 ML IV SCH (23:27)
[2021-02-05] MEDS: PIPERACILLIN/TAZOBACTAM 3.375 GM in SODIUM CHLORIDE 0.9% MINIBAG 100 ML IV SCH (23:28)
[2021-02-06] MEDS: ACETAMINOPHEN 325 MG TABLET PO PRN ×4 (01:56→20:45)
[2021-02-06 01:58] LABS: BASOPHILS % (AUTO) 0.4 %; EOSINOPHILS % (AUTO) 0.2 %; HGB - HEMOGLOBIN 8.6 g/dL (14.0-18.0); LYMPHOCYTES % (AUTO) 2.3 %; MEAN CORPUSCULAR HGB CONC 31.9 g/dL (32.0-36.0); MEAN CORPUSCULAR VOLUME 90.9 fL (80.0-94.0); MEAN PLATELET VOLUME 8.4 fL (7.4-11.4); MONOCYTES % (AUTO) 3.1 %; NEUTROPHILS % (AUTO) 88.6 %; PLT - PLATELET COUNT 465 10^3/uL (130-450); RED BLOOD COUNT 2.97 10^6/uL (4.70-6.10); RED CELL DISTRIBUTION WIDTH 12.9 % (12.0-15.0); WHITE BLOOD COUNT 29.9 x10^3/uL (4.8-10.8)
[2021-02-06 02:03] LABS: CALCIUM 8.4 mg/dL (8.5-10.3); CREATININE 1.4 mg/dL (0.6-1.2); POTASSIUM 4.2 mmol/L (3.5-5.0)
[2021-02-06 02:08] LABS: ABNORMAL LYMPHS % (MANUAL) 0 %
[2021-02-06 02:28] LABS: BAND NEUTROPHILS % (MANUAL) 9 %; LYMPHOCYTES # (MANUAL) 0.9 10^3/uL (1.5-3.5); LYMPHOCYTES % (MANUAL) 3 %; MONOCYTES # (MANUAL) 0.6 10^3/uL (0.0-1.0); NEUTROPHILS # (MANUAL) 28.4 10^3/uL (1.5-6.6); PLATELET ESTIMATE, MANUAL INCREASED (>450,000) (NORMAL); PLATELET MORPHOLOGY NORMAL APPEARANCE (NORMAL); RBC MORPHOLOGY (MULTIPLE) NORMAL APPEARANCE (NORMAL); WBC MORPHOLOGY (MULTIPLE) NORMAL APPEARANCE (NORMAL)
[2021-02-06 02:29] LABS: DIFFERENTIAL COMMENT MANUAL DIFFERENTIAL
[2021-02-06] MEDS ORDERED: WATER FOR INJECTION,STERILE 40 ML MC ONE (02:29)
[2021-02-06] MEDS ORDERED: VANCOMYCIN INJ 2 GM in SODIUM CHLORIDE 0.9% 500 ML IV ONE (03:00)
[2021-02-06] MEDS: SODIUM CHLORIDE FLUSH 0.9% 10 ML SYRINGE IVP SCH ×4 (03:25→23:43)
[2021-02-06] MEDS: SODIUM CHLORIDE 0.9% 1,000 ML IV SCH ×4 (06:55→22:54)
[2021-02-06] MEDS: PIPERACILLIN/TAZOBACTAM 3.375 GM in SODIUM CHLORIDE 0.9% MINIBAG 100 ML IV SCH ×3 (06:56→20:15)
[2021-02-06] MEDS ORDERED: PANTOPRAZOLE 40 MG TABLET PO SCH (07:00)
[2021-02-06] MEDS: IBUPROFEN 400 MG TABLET PO PRN ×3 (07:48→22:30)
[2021-02-06] MEDS ORDERED: ENOXAPARIN 40 MG/0.4 ML SYRINGE SUBQ SCH (09:00)
[2021-02-06] MEDS: SENNA 8.6 MG TABLET PO SCH ×2 (09:08→20:45)
[2021-02-06] MEDS: CALCIUM CARBONATE CHEW 500 MG TABLET PO PRN ×2 (09:09→16:13)
[2021-02-06] MEDS: ONDANSETRON 4 MG/2 ML VIAL IVP PRN (09:09)
[2021-02-06] MEDS: CLOBETASOL 0.05% OINT 15 GM TUBE TOP SCH (09:13)
--- NOTE | 2021-02-06 11:12 | PROVIDER PROGRESS NOTE ---
Assessment/Plan - Problem List (1) Sepsis Qualifiers: Sepsis type: sepsis due to unspecified organism Sepsis acute organ dysfunction status: without acute organ dysfunction Qualified Code(s): A41.9 - Sepsis, unspecified organism Assessment/Plan: 02/06 improved. lactic acid is at the normal arrange, fever is controlled, BP is stable, and tachycardia HR is reduced. But WBC elevated more. Blood culture in PCR show Enterococcal faecalis with UTI. pt's abdomen is benign without tenderness, erythema. will continue Zosyn and Vancomycin now until we have sensitivity study, continue IVF, lab and vital monitor. Called pt's , and updated pt's progress, and answered her questions (2) Complicated UTI (urinary tract infection) pt had new Villafuerte and recently bladder resection and had neobladder continue Zosyn 3.375g IV q6hrs (3) Bladder cancer s/p bladder resection and neobladder 17 days ago and chemtherapy, with urethral villafuerte and suprapubic catheters in place Draining well. Patient self-irrigating Pain management with tylenol, oxycodone and/or dilaudid prn. Patient will follow up with urology in the outpatient setting - Current Meds Current Meds: Current Medications Generic Name Dose Route Start Last Admin Trade Name Freq PRN Reason Stop Dose Admin Acetaminophen 650 mg 02/06/21 01:36 02/06/21 01:56 Acetaminophen 325 Mg Tablet PO 650 mg Q4HR PRN Administration Pain or Fever > 38C (100.4F) Calcium Carbonate/Glycine 500 mg 02/05/21 21:31 02/06/21 09:09 Calcium Carbonate Chew 500 Mg Tablet PO 500 mg TID PRN Administration Heartburn Clobetasol Propionate 1 applic 02/06/21 09:00 02/06/21 09:13 Clobetasol 0.05% Oint 15 Gm Tube TOP Not Given DAILY DENA Piperacillin Sod/Tazobactam 100 mls @ 25 mls/hr 02/05/21 23:00 02/06/21 06:56 Sod 3.375 gm/ Sodium Chloride IV 25 mls/hr Q8H DENA Administration Sodium Chloride 1,000 mls @ 150 mls/hr 02/05/21 21:26 02/06/21 06:55 Normal Saline 0.9% IV 150 mls/hr .Q6H40M DENA Administration Ibuprofen 400 mg 02/05/21 21:09 02/06/21 07:48 Ibuprofen 400 Mg Tablet PO 400 mg Q6HR PRN Administration Pain or Fever > 38C (100.4F) Ondansetron HCl 4 mg 02/05/21 19:09 02/06/21 09:09 Ondansetron 4 Mg/2 Ml Vial IVP 4 mg Q4HR PRN Administration Nausea / Vomiting Pantoprazole Sodium 40 mg 02/06/21 07:00 02/06/21 07:48 Pantoprazole 40 Mg Tablet PO 40 mg QDAC DENA Administration Senna 17.2 mg 02/05/21 21:00 02/06/21 09:08 Senna 8.6 Mg Tablet PO Not Given BID DENA Sodium Chloride 10 ml 02/06/21 01:00 02/06/21 08:24 Sodium Chloride Flush 0.9% 10 Ml Syringe IVP Not Given 0100,0900,1700 DENA - Lab Result Fish Bone Diagrams: 02/06/21 01:50 02/06/21 01:50 - Additional Planning My Orders: My Active Orders 02/06/21 14:00 BMP - BASIC METABOLIC PANEL [CHEM] Timed Subjective - Subjective Patient Reports: Resting Comfortably Objective Vital Signs: Vital Signs - 24 hr 02/05/21 02/05/21 02/05/21 15:13 16:10 16:28 Temperature 37.2 C 37.2 C Heart Rate 118 H 119 H Heart Rate [ Brachial] Respiratory 20 16 Rate Blood Pressure 137/69 H 159/81 H Blood Pressure [Right Brachial artery] O2 Saturation 96 96 02/05/21 02/05/21 02/06/21 18:00 19:27 00:02 Temperature 38.7 C H 36.9 C Heart Rate 119 H Heart Rate [ 121 H 110 H Brachial] Respiratory 16 20 18 Rate Blood Pressure 126/59 L Blood Pressure 141/83 H 90/60 [Right Brachial artery] O2 Saturation 100 96 94 02/06/21 02/06/21 02/06/21 01:05 01:27 01:37 Temperature 37.8 C 37.8 C Heart Rate Heart Rate [ 134 H Brachial] Respiratory Rate Blood Pressure Blood Pressure 90/60 110/70 [Right Brachial artery] O2 Saturation 98 02/06/21 02/06/21 03:24 07:38 Temperature 37.3 C 37.5 C Heart Rate Heart Rate [ 110 H Brachial] Respiratory 20 Rate Blood Pressure Blood Pressure 110/65 [Right Brachial artery] O2 Saturation 96 Oxygen O2 Source Room air I&O (Last 24 Hrs): Intake and Output Totals x24h 02/04/21 02/05/21 02/06/21 23:59 23:59 23:59 Intake Total 0086.695 1787.000 Output Total 800 1151 Balance 754.176 2488.000 General: Alert, Oriented x3, Cooperative, No acute distress HEENT: Atraumatic Neck: Supple Lymphatic: no adenopathy Neuro: Alert, Non Focal, Oriented Times 3 Cardiovascular: Regular rate, Normal S1, Normal S2 Respiratory: Chest non-tender, No respiratory distress, Breath sounds nml Abdomen: Normal bowel sounds, Soft, No tenderness, Other (Suture is still at place, otherwise abdomen is bengin, soft without tenderness, erythema.) Extremities: Normal pulses - Results Results: Laboratory Results WBC 29.9 x10^3/uL (4.8-10.8) H 02/06/21 01:50 RBC 2.97 10^6/uL (4.70-6.10) L 02/06/21 01:50 Hgb 8.6 g/dL (14.0-18.0) L 02/06/21 01:50 Hct 27.0 % (42.0-52.0) L 02/06/21 01:50 MCV 90.9 fL (80.0-94.0) 02/06/21 01:50 MCH 29.0 pg (27.0-31.0) 02/06/21 01:50 MCHC 31.9 g/dL (32.0-36.0) L 02/06/21 01:50 RDW 12.9 % (12.0-15.0) 02/06/21 01:50 Plt Count 465 10^3/uL (130-450) H 02/06/21 01:50 MPV 8.4 fL (7.4-11.4) 02/06/21 01:50 Neut # (Auto) Not Reportable 02/06/21 01:50 Lymph # (Auto) Not Reportable 02/06/21 01:50 [place] # (Auto) Not Reportable 02/06/21 01:50 Eos # (Auto) Not Reportable 02/06/21 01:50 Baso # (Auto) Not Reportable 02/06/21 01:50 Absolute Nucleated RBC Not Reportable 02/06/21 01:50 Total Counted 100 02/06/21 01:50 Band Neuts % (Manual) 9 % (0-10) 02/06/21 01:50 Abnorm Lymph % (Manual) 0 % 02/06/21 01:50 Nucleated RBC % Not Reportable 02/06/21 01:50 Neutrophils # (Manual) 28.4 10^3/uL (1.5-6.6) H 02/06/21 01:50 Lymphocytes # (Manual) 0.9 10^3/uL (1.5-3.5) L 02/06/21 01:50 Monocytes # (Manual) 0.6 10^3/uL (0.0-1.0) 02/06/21 01:50 Eosinophils # (Manual) 0.0 10^3/uL (0-0.7) 02/06/21 01:50 Basophils # (Manual) 0.0 10^3/uL (0-0.1) 02/06/21 01:50 Differential Comment MANUAL DIFFERENTIAL 02/06/21 01:50 Manual Slide Review Indicated 02/05/21 15:36 WBC Morphology NORMAL APPEARANCE (NORMAL) 02/06/21 01:50 Platelet Estimate INCREASED (>450,000) (NORMAL) 02/06/21 01:50 Platelet Morphology NORMAL APPEARANCE (NORMAL) 02/06/21 01:50 RBC Morph Micro Appear NORMAL APPEARANCE (NORMAL) 02/06/21 01:50 Sodium 132 mmol/L (135-145) L 02/06/21 01:50 Potassium 4.2 mmol/L (3.5-5.0) 02/06/21 01:50 Chloride 100 mmol/L (101-111) L 02/06/21 01:50 Carbon Dioxide 19 mmol/L (21-32) L 02/06/21 01:50 Anion Gap 13.0 (6-13) 02/06/21 01:50 BUN 20 mg/dL (6-20) 02/06/21 01:50 Creatinine 1.4 mg/dL (0.6-1.2) H 02/06/21 01:50 Estimated GFR (MDRD) 52 (>89) L 02/06/21 01:50 Glucose 122 mg/dL (70-100) H 02/06/21 01:50 Lactic Acid 1.1 mmol/L (0.5-2.2) 02/06/21 07:34 Calcium 8.4 mg/dL (8.5-10.3) L 02/06/21 01:50 Total Bilirubin 0.6 mg/dL (0.2-1.0) 02/05/21 15:36 AST 25 IU/L (10-42) 02/05/21 15:36 ALT 23 IU/L (10-60) 02/05/21 15:36 Alkaline Phosphatase 138 IU/L (42-121) H 02/05/21 15:36 Total Protein 7.1 g/dL (6.7-8.2) 02/05/21 15:36 Albumin 3.6 g/dL (3.2-5.5) 02/05/21 15:36 Globulin 3.5 g/dL (2.1-4.2) 02/05/21 15:36 Albumin/Globulin Ratio 1.0 (1.0-2.2) 02/05/21 15:36 Urine Color YELLOW 02/05/21 16:01 Urine Clarity CLOUDY (CLEAR) 02/05/21 16:01 Urine pH 7.0 PH (5.0-7.5) 02/05/21 16:01 Ur Specific [place] 1.010 (1.002-1.030) 02/05/21 16:01 Urine Protein 30 mg/dL (NEGATIVE) H 02/05/21 16:01 Urine Glucose (UA) NEGATIVE mg/dL (NEGATIVE) 02/05/21 16:01 Urine Ketones NEGATIVE mg/dL (NEGATIVE) 02/05/21 16:01 Urine Occult Blood LARGE (NEGATIVE) H 02/05/21 16:01 Urine Nitrite NEGATIVE (NEGATIVE) 02/05/21 16:01 Urine Bilirubin NEGATIVE (NEGATIVE) 02/05/21 16:01 Urine Urobilinogen 0.2 (NORMAL) E.U./dL (NORMAL) 02/05/21 16:01 Ur Leukocyte Esterase LARGE (NEGATIVE) H 02/05/21 16:01 Urine RBC TNTC /HPF (0-5) H 02/05/21 16:01 Urine WBC >25 /HPF (0-3) H 02/05/21 16:01 Ur Squamous Epith Cells NONE SEEN (<= Few) 02/05/21 16:01 Urine Bacteria Few /HPF (None Seen) 02/05/21 16:01 Urine Culture Comments INDICATED 02/05/21 16:01 Nasal Adenovirus (PCR) NOT DETECTED 02/05/21 16:29 Nasal B. parapertussis DNA (PCR) NOT DETECTED 02/05/21 16:29 Nasal Coronavir 229E PCR NOT DETECTED 02/05/21 16:29 Nasal Coronavir HKU1 PCR NOT DETECTED 02/05/21 16:29 Nasal Coronavir NL63 PCR NOT DETECTED 02/05/21 16:29 Nasal Coronavir OC43 PCR NOT DETECTED 02/05/21 16:29 Nasal Enterovir/Rhinovir PCR NOT DETECTED 02/05/21 16:29 Nasal Influenza B PCR NOT DETECTED 02/05/21 16:29 Nasal Influenza A PCR NOT DETECTED 02/05/21 16:29 Nasal Parainfluen 1 PCR NOT DETECTED 02/05/21 16:29 Nasal Parainfluen 2 PCR NOT DETECTED 02/05/21 16:29 Nasal Parainfluen 3 PCR NOT DETECTED 02/05/21 16:29 Nasal Parainfluen 4 PCR NOT DETECTED 02/05/21 16:29 Nasal RSV (PCR) NOT DETECTED 02/05/21 16:29 Nasal B.pertussis DNA PCR NOT DETECTED 02/05/21 16:29 Nasal C.pneumoniae (PCR) NOT DETECTED 02/05/21 16:29 [place] Human Metapneumo PCR NOT DETECTED 02/05/21 16:29 Nasal M.pneumoniae (PCR) NOT DETECTED 02/05/21 16:29 Nasal SARS-CoV-2 (PCR) NOT DETECTED 02/05/21 16:29 - Procedures Procedures: Procedures INSPECTION OF LOWER INTESTINAL TRACT, ENDO (04/11/16) Sepsis Event Note (H) - Evaluation Current Stage of Sepsis: Sepsis Possible source of Sepsis: positive: Genitourinary - Sepsis Criteria Sepsis Criteria: Recorded Temperature greater than 38.3C or Less than 36C, Recorded Heart Rate greater than 90 bpm, WBC count greater than 12,000 or less than 4000 ABX Reporting Has patient been on IV antibiotics over the past 48 hours?: Yes Current Medications - Current Medications Current Medications: Active Medications Acetaminophen (Acetaminophen 325 Mg Tablet) 650 mg PO Q4HR PRN PRN Reason: Pain or Fever > 38C (100.4F) Last Admin: 02/06/21 01:56 Dose: 650 mg Documented by: Calcium Carbonate/Glycine (Calcium Carbonate Chew 500 Mg Tablet) 500 mg PO TID PRN PRN Reason: Heartburn Last Admin: 02/06/21 09:09 Dose: 500 mg Documented by: Clobetasol Propionate (Clobetasol 0.05% Oint 15 Gm Tube) 1 applic TOP DAILY [facility] Last Admin: 02/06/21 09:13 Dose: Not Given Documented by: Enoxaparin Sodium (Enoxaparin 40 Mg/0.4 Ml Syringe) 40 mg SUBQ QPM [facility] Piperacillin Sod/Tazobactam (Sod 3.375 gm/ Sodium Chloride) 100 mls @ 25 mls/hr IV Q8H [facility] Last Admin: 02/06/21 06:56 Dose: 25 mls/hr Documented by: Sodium Chloride (Normal Saline 0.9%) 1,000 mls @ 150 mls/hr IV .Q6H40M [facility] Last Admin: 02/06/21 06:55 Dose: 150 mls/hr Documented by: Vancomycin HCl 1.5 gm/ Sodium (Chloride) 500 mls @ 250 mls/hr IV Q12H [facility] Ibuprofen (Ibuprofen 400 Mg Tablet) 400 mg PO Q6HR PRN PRN Reason: Pain or Fever > 38C (100.4F) Last Admin: 02/06/21 07:48 Dose: 400 mg Documented by: Ondansetron HCl (Ondansetron 4 Mg/2 Ml Vial) 4 mg IVP Q4HR PRN PRN Reason: Nausea / Vomiting Last Admin: 02/06/21 09:09 Dose: 4 mg Documented by: Oxycodone HCl (Oxycodone 5 Mg Tablet) 5 mg PO Q4HR PRN PRN Reason: PAIN Pantoprazole Sodium (Pantoprazole 40 Mg Tablet) 40 mg PO QDAC [facility] Last Admin: 02/06/21 07:48 Dose: 40 mg Documented by: Polyethylene Glycol (Polyethylene Glycol 3350 17 Gm Packet) 17 gm PO DAILY PRN PRN Reason: constipation Promethazine HCl (Promethazine 25 Mg Tablet) 25 mg PO Q6HR PRN PRN Reason: Nausea / Vomiting Senna (Senna 8.6 Mg Tablet) 17.2 mg PO BID [facility] Last Admin: 02/06/21 09:08 Dose: Not Given Documented by: Sodium Chloride (Sodium Chloride Flush 0.9% 10 Ml Syringe) 10 ml IVP PRN PRN PRN Reason: NEEDED PER PROVIDER ORDERS Sodium Chloride (Sodium Chloride Flush 0.9% 10 Ml Syringe) 10 ml IVP 0100,0900,1700 DENA Last Admin: 02/06/21 08:24 Dose: Not Given Documented by: Acetaminophen [Acetaminophen Extra Strength] 1,000 mg PO Q6HR PRN 02/05/21 Aspirin/Acetaminophen/Caffeine [Excedrin Migraine Caplet] 1 tab PO Q4HR PRN 02/05/21 Clobetasol 0.05% Oint [Temovate 0.05% Oint] 1 applic TOP DAILY 02/05/21 Enoxaparin [Lovenox] 0.4 ml SQ QPM 02/05/21 Ibuprofen [Motrin] 600 mg PO Q6HR 02/05/21 Omeprazole Magnesium 20 mg PO DAILY 02/05/21 Prochlorperazine Maleate [Compazine] 10 mg PO Q6HR PRN 02/05/21 Senna [Senokot] 2 tab PO BID 02/05/21 Tbo-Filgrastim [Granix] 0.8 ml SQ DAILY 02/05/21 dexAMETHasone [Decadron] 8 mg PO DAILY 02/05/21 ondansetron HCL [Ondansetron HCl] 8 mg PO Q8HR PRN 02/05/21 oxyCODONE [Roxicodone] 5 mg PO Q8HR PRN 02/05/21 polyethylene glycoL 3350 [Miralax] 17 gm PO DAILY PRN 02/05/21
[2021-02-06 13:48] LABS: BASOPHILS # (AUTO) 0.1 10^3/uL (0.0-0.1); BASOPHILS % (AUTO) 0.3 %; EOSINOPHILS # (AUTO) 0.1 10^3/uL (0.0-0.7); EOSINOPHILS % (AUTO) 0.5 %; HCT - HEMATOCRIT 21.5 % (42.0-52.0); LYMPHOCYTES # (AUTO) 0.2 10^3/uL (1.5-3.5); MEAN CORPUSCULAR HGB CONC 31.2 g/dL (32.0-36.0); MONOCYTES # (AUTO) 1.1 10^3/uL (0.0-1.0); MONOCYTES % (AUTO) 5.2 %; NEUTROPHILS % (AUTO) 90.1 %; PLT - PLATELET COUNT 303 10^3/uL (130-450); RED BLOOD COUNT 2.39 10^6/uL (4.70-6.10); RED CELL DISTRIBUTION WIDTH 13.1 % (12.0-15.0); WHITE BLOOD COUNT 21.1 x10^3/uL (4.8-10.8)
[2021-02-06 13:55] LABS: CALCIUM 7.9 mg/dL (8.5-10.3); CREATININE 1.4 mg/dL (0.6-1.2); POTASSIUM 3.4 mmol/L (3.5-5.0)
[2021-02-06 13:57] LABS: HGB - HEMOGLOBIN 6.7 g/dL (14.0-18.0); SLIDE REVIEW? Indicated
[2021-02-06] MEDS ORDERED: POTASSIUM CHLORIDE 20 MEQ TABLET PO ONE (14:02)
[2021-02-06 14:10] LABS: PLATELET ESTIMATE, MANUAL NORMAL (130-450,000) (NORMAL); PLATELET MORPHOLOGY NORMAL APPEARANCE (NORMAL); RBC MORPHOLOGY (MULTIPLE) 3+ HYPOCHROMASIA (NORMAL)
[2021-02-06] MEDS ORDERED: SODIUM CHLORIDE 0.9% 1,000 ML IV SCH (14:10)
[2021-02-06 14:46] LABS: ABSOLUTE RETICS # AUTO 0.05 10^6/uL (0.020-0.110); RED BLOOD COUNT 2.34 10^6/uL (4.70-6.10); RETICULOCYTE COUNT % (AUTO) 2.15 % (0.5-2.3)
[2021-02-06 15:19] LABS: % IRON SATURATION 4 % (20-50); IRON 10 ug/dL (45-182); TOTAL IRON BINDING CAPACITY 252 ug/dL (250-450); TRANSFERRIN 180 mg/dL (180-329)
[2021-02-06 15:20] LABS: FERRITIN 136.6 ng/mL (23.9-336.2)
[2021-02-06] MEDS: FERROUS GLUCONATE 324 MG TABLET PO SCH (16:13)
[2021-02-06] MEDS: SACCHAROMYCES BOULARDII 250 MG CAPSULE PO SCH (16:13)
[2021-02-06] MEDS: VANCOMYCIN INJ 1.5 GM in SODIUM CHLORIDE 0.9% 500 ML IV SCH (17:10)
[2021-02-06 17:40] LABS: FECAL OCCULT BLOOD (FIT) NEGATIVE (NEGATIVE)
[2021-02-06] MEDS: PANTOPRAZOLE 40 MG TABLET PO SCH (20:45)
[2021-02-06] MEDS: ENOXAPARIN 40 MG/0.4 ML SYRINGE SUBQ SCH (20:45)
[2021-02-07] MEDS: ACETAMINOPHEN 325 MG TABLET PO PRN ×5 (00:18→23:45)
[2021-02-07] MEDS: PIPERACILLIN/TAZOBACTAM 3.375 GM in SODIUM CHLORIDE 0.9% MINIBAG 100 ML IV SCH ×3 (04:10→20:32)
[2021-02-07] MEDS: IBUPROFEN 400 MG TABLET PO PRN ×4 (05:21→23:44)
[2021-02-07] MEDS: VANCOMYCIN INJ 1.5 GM in SODIUM CHLORIDE 0.9% 500 ML IV SCH (05:25)
[2021-02-07 05:42] LABS: BASOPHILS # (AUTO) 0.1 10^3/uL (0.0-0.1); BASOPHILS % (AUTO) 0.3 %; EOSINOPHILS % (AUTO) 0.1 %; HCT - HEMATOCRIT 24.4 % (42.0-52.0); HGB - HEMOGLOBIN 7.5 g/dL (14.0-18.0); LYMPHOCYTES # (AUTO) 0.5 10^3/uL (1.5-3.5); LYMPHOCYTES % (AUTO) 2.6 %; MEAN CORPUSCULAR HEMOGLOBIN 28.1 pg (27.0-31.0); MEAN CORPUSCULAR HGB CONC 30.7 g/dL (32.0-36.0); MEAN CORPUSCULAR VOLUME 91.4 fL (80.0-94.0); MEAN PLATELET VOLUME 7.9 fL (7.4-11.4); MONOCYTES % (AUTO) 5.2 %; NEUTROPHILS # (AUTO) 17.4 10^3/uL (1.5-6.6); NEUTROPHILS % (AUTO) 89.6 %; PLT - PLATELET COUNT 296 10^3/uL (130-450); RED BLOOD COUNT 2.67 10^6/uL (4.70-6.10); RED CELL DISTRIBUTION WIDTH 13.3 % (12.0-15.0); WHITE BLOOD COUNT 19.4 x10^3/uL (4.8-10.8)
[2021-02-07 05:53] LABS: CALCIUM 8.2 mg/dL (8.5-10.3); CREATININE 1.5 mg/dL (0.6-1.2); POTASSIUM 3.9 mmol/L (3.5-5.0)
[2021-02-07] MEDS: PANTOPRAZOLE 40 MG TABLET PO SCH ×2 (09:22→20:30)
[2021-02-07] MEDS: SACCHAROMYCES BOULARDII 250 MG CAPSULE PO SCH ×2 (09:22→16:32)
[2021-02-07] MEDS: SENNA 8.6 MG TABLET PO SCH ×2 (09:23→20:37)
[2021-02-07] MEDS: CLOBETASOL 0.05% OINT 15 GM TUBE TOP SCH (09:23)
[2021-02-07] MEDS: SODIUM CHLORIDE FLUSH 0.9% 10 ML SYRINGE IVP SCH ×2 (09:23→16:32)
[2021-02-07] MEDS: FERROUS GLUCONATE 324 MG TABLET PO SCH (09:23)
[2021-02-07] MEDS: SODIUM CHLORIDE 0.9% 1,000 ML IV SCH ×3 (10:10→18:43)
--- NOTE | 2021-02-07 10:53 | PROVIDER PROGRESS NOTE ---
Assessment/Plan - Problem List (1) Sepsis Qualifiers: Sepsis type: sepsis due to unspecified organism Sepsis acute organ dysfunction status: without acute organ dysfunction Qualified Code(s): A41.9 - Sepsis, unspecified organism Assessment/Plan: despite broad spectrum abx, pt developed fever last night, wbc remained joi vated, otherwise BP stable, lactate normalized from 2.6 to 1.0 on 02/06. pt still mildly tender on suprapubic area, source: complicated UTI, enterococcal bacteremia and/or possible ongoing post-op complications. BCX-E.Faecalis on 02/05, -abx as below, -please obtain repeat BCX if pt becomes febrile, Enteroccocal bacteremia, due to UTI as below, BCX-E.Faecalis on 02/05, UCX-same organism, pt initially was started on zosyn, vancomycin, -vancomycin switched to Ampicillin today consider 14d course total, -continue zosyn given unclear source of recurrent fever, Complicated UTI (urinary tract infection) pt had new indwelling catheter, and suprapubic catheter s/p TURBT, neobladder at , UA+ for infection, final UCX-E.Faecalis on 02/05, -abx as above, Bladder cancer s/p bladder resection and neobladder s/p chemotherapy at in mid Sep, with urethral villafuerte and suprapubic catheters in place. pt was initially sent from Urology office due to concern for UTI. pt also had stress test of neobladder which suggested possible leakage-but no surgical intervention recommended. CT a/p on 02/05 showed new mild left hydronephrosis and unchanged right mild hydronephrosis, post-surgical sequelae, subcutaneous gas represent post-op sequale vs nec fascitis. -repeat CT a/p with contrast given persistent fever, would try to discuss with urology if there is any significant findings. -if CT is unremarkable, pt has f/u appointment with on 02/09, for repeat stress test of bladder. which seems reasonable timeframe for f/u. please con desk assistant d/c prior to Mon DIGNA Cr remain poor 1.4-5 since admission, baseline Cr 1.0-1.2, significantly reduced. CT on 02/05 didn't show obvious obstruction, mass, but showed new hydronephrosis on left side ddx: possible obstructive uropathy or prerenal/ATN with sepsis or contrast induced nephropathy given that it got worse since admission. -NS 100cc/hr for 1liter, reassess - Current Meds Current Meds: Current Medications Generic Name Dose Route Start Last Admin Trade Name Freq PRN Reason Stop Dose Admin Acetaminophen 650 mg 02/06/21 01:36 02/07/21 05:22 Acetaminophen 325 Mg Tablet PO 650 mg Q4HR PRN Administration Pain or Fever > 38C (100.4F) Calcium Carbonate/Glycine 500 mg 02/05/21 21:31 02/06/21 16:13 Calcium Carbonate Chew 500 Mg Tablet PO 500 mg TID PRN Administration Heartburn Clobetasol Propionate 1 applic 02/06/21 09:00 02/07/21 09:23 Clobetasol 0.05% Oint 15 Gm Tube TOP Not Given DAILY DENA Enoxaparin Sodium 40 mg 02/06/21 09:46 02/06/21 20:45 Enoxaparin 40 Mg/0.4 Ml Syringe SUBQ 40 mg QPM DENA Administration Ferrous Gluconate 324 mg 02/06/21 16:00 02/07/21 09:23 Ferrous Gluconate 324 Mg Tablet PO 324 mg DAILYWM DENA Administration Piperacillin Sod/Tazobactam 100 mls @ 25 mls/hr 02/05/21 23:00 02/07/21 04:10 Sod 3.375 gm/ Sodium Chloride IV 25 mls/hr Q8H DENA Administration Vancomycin HCl 1.5 gm/ Sodium 500 mls @ 250 mls/hr 02/06/21 15:00 02/07/21 07:55 Chloride IV Infused Q12H DENA Infusion Sodium Chloride 1,000 mls @ 125 mls/hr 02/06/21 14:11 02/07/21 10:10 Normal Saline 0.9% IV 125 mls/hr .Q8H DENA Administration Ibuprofen 400 mg 02/05/21 21:09 02/07/21 05:21 Ibuprofen 400 Mg Tablet PO 400 mg Q6HR PRN Administration Pain or Fever > 38C (100.4F) Ondansetron HCl 4 mg 02/05/21 19:09 02/06/21 09:09 Ondansetron 4 Mg/2 Ml Vial IVP 4 mg Q4HR PRN Administration Nausea / Vomiting Pantoprazole Sodium 40 mg 02/06/21 21:00 02/07/21 09:22 Pantoprazole 40 Mg Tablet PO 40 mg BID DENA Administration Saccharomyces Boulardii 250 mg 02/06/21 17:00 02/07/21 09:22 Saccharomyces Boulardii 250 Mg Capsule PO 250 mg BIDWM DENA Administration Senna 17.2 mg 02/05/21 21:00 02/07/21 09:23 Senna 8.6 Mg Tablet PO Not Given BID DENA Sodium Chloride 10 ml 02/06/21 01:00 02/07/21 09:23 Sodium Chloride Flush 0.9% 10 Ml Syringe IVP Not Given 0100,0900,1700 DENA - Lab Result Fish Bone Diagrams: 02/07/21 05:34 02/07/21 05:34 - Additional Planning My Orders: My Active Orders 02/07/21 10:50 ABDOMEN/PELVIS W [CT] Routine Subjective - Subjective Patient Reports: Other (pt was still febrile, no bcx repeated, UCX/BCX finalized, pt thinks that he is improving denies pain.) Objective Vital Signs: Vital Signs - 24 hr 02/06/21 02/06/21 02/06/21 11:30 16:11 21:00 Temperature 37.8 C 38.1 C H 37.6 C Heart Rate [ 105 H 105 H 99 Brachial] Respiratory 19 20 18 Rate Blood Pressure 116/68 109/70 105/63 [Right Brachial artery] O2 Saturation 95 97 96 02/06/21 02/07/21 02/07/21 22:29 00:16 05:20 Temperature 38.4 C H 38.6 C H 37.4 C Heart Rate [ 110 H 109 H Brachial] Respiratory 24 20 Rate Blood Pressure 119/71 132/75 H [Right Brachial artery] O2 Saturation 94 97 02/07/21 02/07/21 07:26 07:54 Temperature 37.8 C 36.2 C L Heart Rate [ 97 Brachial] Respiratory 18 Rate Blood Pressure 103/62 [Right Brachial artery] O2 Saturation 96 Oxygen O2 Source Room air I&O (Last 24 Hrs): Intake and Output Totals x24h 02/05/21 02/06/21 02/07/21 23:59 23:59 23:59 Intake Total 4516.527 2503.584 2580.000 Output Total 800 2601 750 Balance 655.472 8474.584 1830.000 General: Alert, Oriented x3, Cooperative, No acute distress HEENT: Atraumatic, PERRLA, EOMI Neck: Supple, No JVD, No thyromegaly, +2 carotid pulse wo bruit, No LAD Lymphatic: no adenopathy Neuro: Alert, CN 2-12 Grossly Intact, Oriented Times 3 Cardiovascular: Regular rate, Normal S1, Normal S2, No murmurs Respiratory: Chest non-tender, No respiratory distress, Breath sounds nml Abdomen: Normal bowel sounds, Soft, No tenderness, Other (s/p suprapubic cath in place, villafuerte cath in place) Genitourinary: Normal Inspection, No Mass, No Discharge, No Meatal Blood, No Hernia Rectal: Non-Tender Extremities: No clubbing, No cyanosis, No edema, Normal pulses, No tenderness/swelling Skin: No rashes, No breakdown, No significant lesion - Results Results: Laboratory Results WBC 19.4 x10^3/uL (4.8-10.8) H 02/07/21 05:34 RBC 2.67 10^6/uL (4.70-6.10) L 02/07/21 05:34 Hgb 7.5 g/dL (14.0-18.0) L 02/07/21 05:34 Hct 24.4 % (42.0-52.0) L 02/07/21 05:34 MCV 91.4 fL (80.0-94.0) 02/07/21 05:34 MCH 28.1 pg (27.0-31.0) 02/07/21 05:34 MCHC 30.7 g/dL (32.0-36.0) L 02/07/21 05:34 RDW 13.3 % (12.0-15.0) 02/07/21 05:34 Plt Count 296 10^3/uL (130-450) 02/07/21 05:34 MPV 7.9 fL (7.4-11.4) 02/07/21 05:34 Reticulocyte % (Auto) 2.15 % (0.5-2.3) 02/06/21 13:41 Neut # (Auto) 17.4 10^3/uL (1.5-6.6) H 02/07/21 05:34 Lymph # (Auto) 0.5 10^3/uL (1.5-3.5) L 02/07/21 05:34 [place] # (Auto) 1.0 10^3/uL (0.0-1.0) 02/07/21 05:34 Eos # (Auto) 0.0 10^3/uL (0.0-0.7) 02/07/21 05:34 Baso # (Auto) 0.1 10^3/uL (0.0-0.1) 02/07/21 05:34 Absolute Nucleated RBC 0.00 x10^3/uL 02/07/21 05:34 Total Counted 100 02/06/21 01:50 Band Neuts % (Manual) 9 % (0-10) 02/06/21 01:50 Abnorm Lymph % (Manual) 0 % 02/06/21 01:50 Nucleated RBC % 0.0 /100WBC 02/07/21 05:34 Neutrophils # (Manual) 28.4 10^3/uL (1.5-6.6) H 02/06/21 01:50 Lymphocytes # (Manual) 0.9 10^3/uL (1.5-3.5) L 02/06/21 01:50 Monocytes # (Manual) 0.6 10^3/uL (0.0-1.0) 02/06/21 01:50 Eosinophils # (Manual) 0.0 10^3/uL (0-0.7) 02/06/21 01:50 Basophils # (Manual) 0.0 10^3/uL (0-0.1) 02/06/21 01:50 Differential Comment MANUAL DIFFERENTIAL 02/06/21 01:50 Manual Slide Review Indicated 02/06/21 13:41 WBC Morphology (NORMAL) 02/06/21 13:41 Platelet Estimate NORMAL (130-450,000) (NORMAL) 02/06/21 13:41 Platelet Morphology NORMAL APPEARANCE (NORMAL) 02/06/21 13:41 RBC Morph Micro Appear 3+ HYPOCHROMASIA (NORMAL) 02/06/21 13:41 Absolute Retic 0.050 10^6/uL (0.020-0.110) 02/06/21 13:41 Sodium 133 mmol/L (135-145) L 02/07/21 05:34 Potassium 3.9 mmol/L (3.5-5.0) 02/07/21 05:34 Chloride 102 mmol/L (101-111) 02/07/21 05:34 Carbon Dioxide 20 mmol/L (21-32) L 02/07/21 05:34 Anion Gap 11.0 (6-13) 02/07/21 05:34 BUN 23 mg/dL (6-20) H 02/07/21 05:34 Creatinine 1.5 mg/dL (0.6-1.2) H 02/07/21 05:34 Estimated GFR (MDRD) 48 (>89) L 02/07/21 05:34 Glucose 131 mg/dL (70-100) H 02/07/21 05:34 Lactic Acid 1.0 mmol/L (0.5-2.2) 02/06/21 12:34 Calcium 8.2 mg/dL (8.5-10.3) L 02/07/21 05:34 Iron 10 ug/dL (45-182) L 02/06/21 13:41 TIBC 252 ug/dL (250-450) 02/06/21 13:41 % Saturation 4 % (20-50) L 02/06/21 13:41 Transferrin 180 mg/dL (180-329) 02/06/21 13:41 Ferritin 136.6 ng/mL (23.9-336.2) 02/06/21 13:41 Total Bilirubin 0.6 mg/dL (0.2-1.0) 02/05/21 15:36 AST 25 IU/L (10-42) 02/05/21 15:36 ALT 23 IU/L (10-60) 02/05/21 15:36 Alkaline Phosphatase 138 IU/L (42-121) H 02/05/21 15:36 Lactate Dehydrogenase 91 IU/L (91-225) 02/06/21 13:41 Total Protein 7.1 g/dL (6.7-8.2) 02/05/21 15:36 Albumin 3.6 g/dL (3.2-5.5) 02/05/21 15:36 Globulin 3.5 g/dL (2.1-4.2) 02/05/21 15:36 Albumin/Globulin Ratio 1.0 (1.0-2.2) 02/05/21 15:36 Vitamin B12 184 pg/mL (180-914) 02/06/21 13:41 Urine Color YELLOW 02/05/21 16:01 Urine Clarity CLOUDY (CLEAR) 02/05/21 16:01 Urine pH 7.0 PH (5.0-7.5) 02/05/21 16:01 Ur Specific [place] 1.010 (1.002-1.030) 02/05/21 16:01 Urine Protein 30 mg/dL (NEGATIVE) H 02/05/21 16:01 Urine Glucose (UA) NEGATIVE mg/dL (NEGATIVE) 02/05/21 16:01 Urine Ketones NEGATIVE mg/dL (NEGATIVE) 02/05/21 16:01 Urine Occult Blood LARGE (NEGATIVE) H 02/05/21 16:01 Urine Nitrite NEGATIVE (NEGATIVE) 02/05/21 16:01 Urine Bilirubin NEGATIVE (NEGATIVE) 02/05/21 16:01 Urine Urobilinogen 0.2 (NORMAL) E.U./dL (NORMAL) 02/05/21 16:01 Ur Leukocyte Esterase LARGE (NEGATIVE) H 02/05/21 16:01 Urine RBC TNTC /HPF (0-5) H 02/05/21 16:01 Urine WBC >25 /HPF (0-3) H 02/05/21 16:01 Ur Squamous Epith Cells NONE SEEN (<= Few) 02/05/21 16:01 Urine Bacteria Few /HPF (None Seen) 02/05/21 16:01 Urine Culture Comments INDICATED 02/05/21 16:01 Nasal Adenovirus (PCR) NOT DETECTED 02/05/21 16:29 Nasal B. parapertussis DNA (PCR) NOT DETECTED 02/05/21 16:29 Nasal Coronavir 229E PCR NOT DETECTED 02/05/21 16:29 Nasal Coronavir HKU1 PCR NOT DETECTED 02/05/21 16:29 Nasal Coronavir NL63 PCR NOT DETECTED 02/05/21 16:29 Nasal Coronavir OC43 PCR NOT DETECTED 02/05/21 16:29 Nasal Enterovir/Rhinovir PCR NOT DETECTED 02/05/21 16:29 Nasal Influenza B PCR NOT DETECTED 02/05/21 16:29 Nasal Influenza A PCR NOT DETECTED 02/05/21 16:29 Nasal Parainfluen 1 PCR NOT DETECTED 02/05/21 16:29 Nasal Parainfluen 2 PCR NOT DETECTED 02/05/21 16:29 Nasal Parainfluen 3 PCR NOT DETECTED 02/05/21 16:29 Nasal Parainfluen 4 PCR NOT DETECTED 02/05/21 16:29 Nasal RSV (PCR) NOT DETECTED 02/05/21 16:29 Nasal B.pertussis DNA PCR NOT DETECTED 02/05/21 16:29 Nasal C.pneumoniae (PCR) NOT DETECTED 02/05/21 16:29 [place] Human Metapneumo PCR NOT DETECTED 02/05/21 16:29 Nasal M.pneumoniae (PCR) NOT DETECTED 02/05/21 16:29 Nasal SARS-CoV-2 (PCR) NOT DETECTED 02/05/21 16:29 Stl Occult Blood (IFOB) NEGATIVE (NEGATIVE) 02/06/21 17:00 Blood Type A NEGATIVE 02/06/21 15:49 Blood Type Recheck A NEGATIVE 02/06/21 13:41 Antibody Screen NEGATIVE 02/06/21 15:49 Crossmatch IS Only See Detail 02/06/21 15:49 - Procedures Procedures: Procedures INSPECTION OF LOWER INTESTINAL TRACT, ENDO (04/11/16) Sepsis Event Note (H) - Evaluation Current Stage of Sepsis: Sepsis Possible source of Sepsis: positive: Genitourinary - Sepsis Criteria Sepsis Criteria: Recorded Temperature greater than 38.3C or Less than 36C, Recorded Heart Rate greater than 90 bpm, WBC count greater than 12,000 or less than 4000
[2021-02-07] MEDS ORDERED: IOVERSOL 320 100 ML VIAL IVP ONE ×2 (11:12→12:50)
[2021-02-07] MEDS ORDERED: IOVERSOL 320 50 ML VIAL ONE (11:12)
[2021-02-07] MEDS ORDERED: IOVERSOL 320 50 ML VIAL PO ONE (12:50)
--- NOTE | 2021-02-07 13:46 | CT Report ---
PROCEDURE: Abdomen/Pelvis W INDICATIONS: persistent infection s/p neobladder leak CONTRAST: IV CONTRAST: Optiray 320 ml: 100 PO CONTRAST: Optiray 320 ml50 TECHNIQUE: After the administration of IV and oral contrast, 5 mm thick sections acquired from the diaphragms to the symphysis. 5 mm thick coronal and sagittal reformats were acquired. For radiation dose reducti on, the following was used: automated exposure control, adjustment of mA and/or kV according to berna ent size. COMPARISON: 02/05/2021, 05/06/2020 FINDINGS: Image quality: Excellent. ABDOMEN: Lung bases: Trace bilateral pleural effusions with atelectasis can be seen. There is a moderate hiata l hernia. Heart size is normal. Solid organs: Liver and spleen are normal in size and enhancement. Gallbladder the gallbladder is c ollapsed at the time of this study. Biliary system is non dilated. Pancreas enhances normally. No adrenal nodules. Kidneys demonstrate normal size and enhancement. Nonobstructing bilateral renal stones are seen. Mil d bilateral hydronephrosis is seen. Peritoneum and bowel: Bowel loops demonstrate normal wall thickness and caliber. No free fluid or a ir. Diverticulosis can be seen, without jean-pierre findings of active diverticulitis. Nodes and vessels: No retroperitoneal or mesenteric adenopathy by size criteria. Aorta and inferior vena cava are normal in size. Miscellaneous: No ventral hernias. Continued soft tissue gas can be seen involving the soft tissues of the anterior abdominal wall, including the anterior thighs. PELVIS: Genitourinary: A Damon catheter seen, which decompresses the neobladder. A suprapubic catheter is also seen. Miscellaneous: No inguinal adenopathy. Small bilateral fat-containing inguinal hernias are seen. A mild amount of free fluid or free air can be seen within the pelvis. There is a stable focal fluid co llection involving the left anterior pelvis, which measures up to 4.3 cm, as on series 6 image 25. Bones: No suspicious bony lesions. No vertebral body compression fractures. Degenerative changes a re seen, which are worst at the L5-S1 level. IMPRESSION: Postoperative change with neobladder, including a Damon catheter and suprapubic catheter , with gas and fluid seen within the pelvis. Stable fluid collection seen involving the left anterior pelvis, without enhancement. This may also b e postsurgical. Mild bilateral hydronephrosis is seen, which is likely postsurgical. Soft tissue gas is again seen involving the anterior abdominal wall , including involving the thighs. Trace bilateral pleural effusions are seen. Incidental note is made of: Moderate hiatal hernia Nonobstructing bilateral renal stones Sigmoid diverticulosis, without findings of active diverticulitis. Small bilateral fat-containing inguinal hernias Focal L5-S1 degenerative change. Reviewed by: Víctor Tristan MD on 02/07/2021 12:45 PM AKKAREN Approved by: Víctor Tristan MD on 02/07/2021 12:45 PM AKKAREN Station ID: [id number]
[2021-02-07] MEDS: ENOXAPARIN 40 MG/0.4 ML SYRINGE SUBQ SCH (20:37)
[2021-02-08] MEDS ORDERED: LOPERAMIDE 2 MG CAPSULE PO PRN (00:57)
[2021-02-08] MEDS: SODIUM CHLORIDE FLUSH 0.9% 10 ML SYRINGE IVP SCH ×3 (03:04→15:23)
[2021-02-08] MEDS: SODIUM CHLORIDE 0.9% 1,000 ML IV SCH ×2 (04:12→19:34)
[2021-02-08] MEDS: PIPERACILLIN/TAZOBACTAM 3.375 GM in SODIUM CHLORIDE 0.9% MINIBAG 100 ML IV SCH ×3 (04:14→23:46)
[2021-02-08 04:37] LABS: BASOPHILS % (AUTO) 0.3 %; EOSINOPHILS # (AUTO) 0.1 10^3/uL (0.0-0.7); EOSINOPHILS % (AUTO) 1.1 %; HCT - HEMATOCRIT 21.3 % (42.0-52.0); LYMPHOCYTES # (AUTO) 0.5 10^3/uL (1.5-3.5); LYMPHOCYTES % (AUTO) 4.5 %; MEAN CORPUSCULAR HEMOGLOBIN 28.6 pg (27.0-31.0); MEAN CORPUSCULAR HGB CONC 31.5 g/dL (32.0-36.0); MEAN PLATELET VOLUME 8.3 fL (7.4-11.4); MONOCYTES % (AUTO) 9.1 %; NEUTROPHILS # (AUTO) 9.1 10^3/uL (1.5-6.6); NEUTROPHILS % (AUTO) 82.3 %; PLT - PLATELET COUNT 274 10^3/uL (130-450); RED BLOOD COUNT 2.34 10^6/uL (4.70-6.10); RED CELL DISTRIBUTION WIDTH 13.4 % (12.0-15.0); WHITE BLOOD COUNT 11.1 x10^3/uL (4.8-10.8)
[2021-02-08 04:51] LABS: CALCIUM 8.2 mg/dL (8.5-10.3); CREATININE 1.3 mg/dL (0.6-1.2); POTASSIUM 3.6 mmol/L (3.5-5.0)
[2021-02-08 04:52] LABS: HGB - HEMOGLOBIN 6.7 g/dL (14.0-18.0)
[2021-02-08] MEDS: ACETAMINOPHEN 325 MG TABLET PO PRN ×4 (05:18→23:43)
--- NOTE | 2021-02-08 08:22 | PROVIDER PROGRESS NOTE ---
Subjective - Prog Note Date Prog Note Date: 02/08/21 Prog Note Time: 08:22 - Subjective Subjective: He had fever on February 06. Fever on February 07. T-max yesterday was 38.2. Today he has had no fever. T-max 36.3. He states that he is feeling better but he is exhausted. His IV pump kept on going off last night and did not give him any sleep. Nursing states that he did not get his IV antibiotics this morning because of pump malfunction so they have retimed his antibiotics. Nursing also tells me that he kept the lights off all day yesterday. This morning when I going to examine him he asked me to please do not turn on the lights I would prefer keeping the lights off. Nutrition services knows this gentleman in the outpatient setting. She states that he has taken the news of his cancer, and reconstruction poorly. He is coping mechanisms are all maxed out. He has become withdrawn, quiet. is frantic that he is depressed and no one is addressing the issue. He was undecided about the bladder reconstruction, decided to go for it reluctantly, and now that is not successful he is even more depressed. I went over his labs with him. Hemoglobin is 6.7 g again today. He was 6.7 on February 06. Repeat was 7.2. Yesterday morning 7.5. And back down to 6.7 again today. I explained that some of his fatigue, and lack of energy may be from anemia. He takes iron supplements already. Nutrition services recommending B12 supplementation. He denies chest pain, palpitations, shortness of breath. Current Medications - Current Medications Current Medications: Active Medications Generic Name Dose Route Start Last Admin Trade Name Shannon PRN Reason Stop Dose Admin Acetaminophen 650 mg 02/06/21 01:36 02/08/21 10:22 Acetaminophen 325 Mg Tablet PO 650 mg Q4HR PRN Administration Pain or Fever > 38C (100.4F) Calcium Carbonate/Glycine 500 mg 02/05/21 21:31 02/08/21 10:21 Calcium Carbonate Chew 500 Mg Tablet PO 500 mg TID PRN Administration Heartburn Clobetasol Propionate 1 applic 02/06/21 09:00 02/08/21 09:07 Clobetasol 0.05% Oint 15 Gm Tube TOP 1 applic DAILY DENA Administration Enoxaparin Sodium 40 mg 02/06/21 09:46 02/07/21 20:37 Enoxaparin 40 Mg/0.4 Ml Syringe SUBQ 40 mg QPM DENA Administration Ferrous Gluconate 324 mg 02/06/21 16:00 02/08/21 09:07 Ferrous Gluconate 324 Mg Tablet PO 324 mg DAILYWM DENA Administration Piperacillin Sod/Tazobactam 100 mls @ 25 mls/hr 02/05/21 23:00 02/08/21 04:14 Sod 3.375 gm/ Sodium Chloride IV 25 mls/hr Q8H DENA Administration Sodium Chloride 1,000 mls @ 100 mls/hr 02/07/21 19:00 02/08/21 04:12 Normal Saline 0.9% IV 100 mls/hr .Q10H DENA Administration Ibuprofen 400 mg 02/05/21 21:09 02/08/21 10:22 Ibuprofen 400 Mg Tablet PO 400 mg Q6HR PRN Administration Pain or Fever > 38C (100.4F) Loperamide HCl 2 mg 02/08/21 00:57 02/08/21 04:12 Loperamide 2 Mg Capsule PO 2 mg QID PRN Administration Diarrhea Ondansetron HCl 4 mg 02/05/21 19:09 02/06/21 09:09 Ondansetron 4 Mg/2 Ml Vial IVP 4 mg Q4HR PRN Administration Nausea / Vomiting Oxycodone HCl 5 mg 02/05/21 19:12 02/08/21 05:17 Oxycodone 5 Mg Tablet PO 5 mg Q4HR PRN Administration PAIN Pantoprazole Sodium 40 mg 02/06/21 21:00 02/08/21 09:07 Pantoprazole 40 Mg Tablet PO 40 mg BID DENA Administration Polyethylene Glycol 17 gm 02/05/21 19:11 Polyethylene Glycol 3350 17 Gm Packet PO DAILY PRN constipation Promethazine HCl 25 mg 02/05/21 20:00 Promethazine 25 Mg Tablet PO Q6HR PRN Nausea / Vomiting Saccharomyces Boulardii 250 mg 02/06/21 17:00 02/08/21 09:07 Saccharomyces Boulardii 250 Mg Capsule PO 250 mg BIDWM DENA Administration Senna 17.2 mg 02/05/21 21:00 02/08/21 09:08 Senna 8.6 Mg Tablet PO Not Given BID DENA Sodium Chloride 10 ml 02/05/21 18:33 Sodium Chloride Flush 0.9% 10 Ml Syringe IVP PRN PRN NEEDED PER PROVIDER ORDERS Sodium Chloride 10 ml 02/06/21 01:00 02/08/21 09:08 Sodium Chloride Flush 0.9% 10 Ml Syringe IVP 10 ml 0100,0900,1700 DENA Administration Acetaminophen [Acetaminophen Extra Strength] 1,000 mg PO Q6HR PRN 02/05/21 Aspirin/Acetaminophen/Caffeine [Excedrin Migraine Caplet] 1 tab PO Q4HR PRN 02/05/21 Clobetasol 0.05% Oint [Temovate 0.05% Oint] 1 applic TOP DAILY 02/05/21 Enoxaparin [Lovenox] 0.4 ml SQ QPM 02/05/21 Ibuprofen [Motrin] 600 mg PO Q6HR 02/05/21 Omeprazole Magnesium 20 mg PO DAILY 02/05/21 Prochlorperazine Maleate [Compazine] 10 mg PO Q6HR PRN 02/05/21 Senna [Senokot] 2 tab PO BID 02/05/21 Tbo-Filgrastim [Granix] 0.8 ml SQ DAILY 02/05/21 dexAMETHasone [Decadron] 8 mg PO DAILY 02/05/21 ondansetron HCL [Ondansetron HCl] 8 mg PO Q8HR PRN 02/05/21 oxyCODONE [Roxicodone] 5 mg PO Q8HR PRN 02/05/21 polyethylene glycoL 3350 [Miralax] 17 gm PO DAILY PRN 02/05/21 Objective - Vital Signs/Intake & Output Reviewed Vital Signs: Yes Vital Signs: Vital Signs x48h Temp Pulse Resp BP Pulse Ox 02/08/21 08:02 36.6 C 85 16 124/72 95 02/08/21 04:14 36.3 C L 82 20 134/82 H 98 Intake & Output: Intake & Output 02/05/21 02/06/21 02/07/21 02/08/21 23:59 23:59 23:59 23:59 Intake Total 0118.321 1827.584 4802.000 1048.333 Output Total 800 2601 2250 1500 Balance 063.484 7686.584 2552.000 -451.667 - Objective General Appearance: positive: No acute distress, Alert, Other (6 foot 4 inch white male. 99.5 kg. Upright in bed. The room is quite dark but he asked that I please do not turn on the lights.) Eyes Bilateral: positive: PERRL, EOMI ENT: positive: No signs of dehydration Neck: positive: No JVD. negative: Stiff neck Respiratory: positive: Chest non-tender, Other (Slow, unlabored respiration). negative: Wheezes, Rales, Rhonchi Cardiovascular: positive: Regular rate & rhythm, Systolic murmur (Very slight, loudest at left lower sternal border. Nonradiating.). negative: Gallop/S4, Friction rub Abdomen: positive: Non-tender, No organomegaly, Nml bowel sounds, No distention Skin: positive: Warm, Dry Extremities: positive: Full ROM, No pedal edema Neurologic/Psychiatric: positive: Oriented x3, CN's nml (2-12), Motor nml - Lab Results Fish Bones: 02/08/21 04:25 02/08/21 04:25 Other Labs: Lab Results x24hrs 02/08/21 02/08/21 02/07/21 Range/Units 04:25 04:25 21:58 WBC 11.1 H (4.8-10.8) x10^3/uL RBC 2.34 L (4.70-6.10) 10^6/uL Hgb 6.7 L* (14.0-18.0) g/dL Hct 21.3 L (42.0-52.0) % MCV 91.0 (80.0-94.0) fL MCH 28.6 (27.0-31.0) pg MCHC 31.5 L (32.0-36.0) g/dL RDW 13.4 (12.0-15.0) % Plt Count 274 (130-450) 10^3/uL MPV 8.3 (7.4-11.4) fL Neut # (Auto) 9.1 H (1.5-6.6) 10^3/uL Lymph # (Auto) 0.5 L (1.5-3.5) 10^3/uL [place] # (Auto) 1.0 (0.0-1.0) 10^3/uL Eos # (Auto) 0.1 (0.0-0.7) 10^3/uL Baso # (Auto) 0.0 (0.0-0.1) 10^3/uL Absolute Nucleated RBC 0.00 x10^3/uL Nucleated RBC % 0.0 /100WBC Sodium 136 (135-145) mmol/L Potassium 3.6 (3.5-5.0) mmol/L Chloride 107 (101-111) mmol/L Carbon Dioxide 20 L (21-32) mmol/L Anion Gap 9.0 (6-13) BUN 18 (6-20) mg/dL Creatinine 1.3 H (0.6-1.2) mg/dL Estimated GFR (MDRD) 57 L (>89) Glucose 109 H (70-100) mg/dL Calcium 8.2 L (8.5-10.3) mg/dL Stl C. diff Tox B Gene NEGATIVE (NEGATIVE) ABX Reporting Has patient been on IV antibiotics over the past 48 hours?: Yes Sepsis Event Note (H) - Evaluation Current Stage of Sepsis: Resolved Possible source of Sepsis: positive: Genitourinary - Sepsis Criteria Sepsis Criteria: Recorded Temperature greater than 38.3C or Less than 36C, Recorded Heart Rate greater than 90 bpm, WBC count greater than 12,000 or less than 4000 Assessment/Plan - Problem List (1) Adjustment disorder with depressed mood Impression: I've asked social work to sit down with him. Consider remeron for short term if he is amenable. (2) Sepsis Impression: Resolved. Due to UTI listed in next problem. despite broad spectrum abx, pt developed a fever 02/06 and wbc remained elevated, otherwise BP stable, lactate normalized from 2.6 to 1.0 on 02/06. pt was still mildly tender on suprapubic area, source: complicated UTI, enterococcal bacteremia and/or possible ongoing post-op complications. BCX-E.Faecalis on 02/05 Repeat blood cultures were done 02/06. CT of Abd CT was done and showed po stoperative changes with neobladder. Including Villafuerte catheter and suprapubic catheter and gas and fluid seen within the pelvis. Stable fluid collection seen involving the left anterior pelvis without enhancement. Possibly postsurgical. Mild bilateral hydronephrosis. Soft tissue gas seen involving the anterior abdominal wall including the thighs. Trace bilateral pleural effusion seen. Enteroccocal bacteremia with admit culture 02/05 as well as urine culture growing same organism. Started on zosyn, vancomycin, -vancomycin switched to Ampicillin 02/07 and then back to Zosyn on same day, consider 14d course total, I will discuss the radiology report with radiology as well as surgeon to see if the soft tissue air continues to be an expected post surgical finding.Push films to . I will review results of repeat blood cultures 02/06 once they are in Continue current abx (3) Complicated UTI (urinary tract infection) pt had new indwelling catheter, and suprapubic catheter s/p TURBT, neobladder at , UA+ for infection, final UCX-E.Faecalis on 02/05, -abx as above, (4) Bladder cancer s/p bladder resection and neobladder s/p chemotherapy at in mid Sep, with urethral villafuerte and suprapubic catheters in place. pt was initially sent from Urology office due to concern for UTI. pt also had stress test of neobladder which suggested possible leakage-but no surgical intervention recommended. CT a/p on 02/05 showed new mild left hydronephrosis and unchanged right mild hydronephrosis, post-surgical sequelae, subcutaneous gas represent post-op sequale vs nec fascitis. -repeat CT a/p with contrast given persistent fever, and I will try to get Urology to review pushed films and let me know if there are worries. -Pt has f/u appointment with on 02/09, for repeat stress test of bladder. His WBC is down and no fever for 24 hours. I would like to dc tomorrow but will run by Urology first. (5) DIGNA Cr remain poor 1.4-1.5 since admission, baseline Cr 1.0-1.2, significantly reduced. CT on 02/05 didn't show obvious obstruction, mass, but showed new hydronephrosis on left side ddx: possible obstructive uropathy or prerenal/ATN with sepsis or contrast induced nephropathy given that it got worse since admission. Today 1.3 so he has improved but not to baseline after 100-125 cc/hr since yesterday. continue IVF
[2021-02-08] MEDS: SACCHAROMYCES BOULARDII 250 MG CAPSULE PO SCH ×2 (09:07→16:36)
[2021-02-08] MEDS: CLOBETASOL 0.05% OINT 15 GM TUBE TOP SCH (09:07)
[2021-02-08] MEDS: PANTOPRAZOLE 40 MG TABLET PO SCH ×2 (09:07→20:25)
[2021-02-08] MEDS: FERROUS GLUCONATE 324 MG TABLET PO SCH (09:07)
[2021-02-08] MEDS: SENNA 8.6 MG TABLET PO SCH ×2 (09:08→23:47)
[2021-02-08] MEDS: CALCIUM CARBONATE CHEW 500 MG TABLET PO PRN ×2 (10:21→23:54)
[2021-02-08] MEDS: IBUPROFEN 400 MG TABLET PO PRN ×3 (10:22→23:43)
[2021-02-08] MEDS ORDERED: CYANOCOBALAMIN 1,000 MCG/ML VIAL IM ONE (14:20)
[2021-02-08] MEDS: MULTIVITAMIN W/MINERALS TABLET PO SCH (16:40)
[2021-02-08] MEDS: ONDANSETRON 4 MG/2 ML VIAL IVP PRN (18:13)
[2021-02-08] MEDS: ENOXAPARIN 40 MG/0.4 ML SYRINGE SUBQ SCH (20:25)
[2021-02-09] MEDS: SODIUM CHLORIDE 0.9% 1,000 ML IV SCH ×2 (02:16→12:18)
[2021-02-09] MEDS: SODIUM CHLORIDE FLUSH 0.9% 10 ML SYRINGE IVP SCH ×2 (04:03→09:04)
[2021-02-09] MEDS: ACETAMINOPHEN 325 MG TABLET PO PRN ×2 (05:37→09:36)
[2021-02-09 05:48] LABS: BASOPHILS # (AUTO) 0.1 10^3/uL (0.0-0.1); BASOPHILS % (AUTO) 0.7 %; EOSINOPHILS # (AUTO) 0.1 10^3/uL (0.0-0.7); EOSINOPHILS % (AUTO) 1.3 %; HCT - HEMATOCRIT 22.7 % (42.0-52.0); HGB - HEMOGLOBIN 7.2 g/dL (14.0-18.0); LYMPHOCYTES # (AUTO) 0.6 10^3/uL (1.5-3.5); LYMPHOCYTES % (AUTO) 8.1 %; MEAN CORPUSCULAR HGB CONC 31.7 g/dL (32.0-36.0); MEAN CORPUSCULAR VOLUME 88.3 fL (80.0-94.0); MEAN PLATELET VOLUME 8.9 fL (7.4-11.4); MONOCYTES # (AUTO) 0.9 10^3/uL (0.0-1.0); MONOCYTES % (AUTO) 11.2 %; NEUTROPHILS # (AUTO) 5.9 10^3/uL (1.5-6.6); NEUTROPHILS % (AUTO) 77.7 %; PLT - PLATELET COUNT 299 10^3/uL (130-450); RED BLOOD COUNT 2.57 10^6/uL (4.70-6.10); RED CELL DISTRIBUTION WIDTH 13.5 % (12.0-15.0); WHITE BLOOD COUNT 7.6 x10^3/uL (4.8-10.8)
[2021-02-09 05:59] LABS: CALCIUM 8.2 mg/dL (8.5-10.3); CREATININE 1.3 mg/dL (0.6-1.2); POTASSIUM 3.1 mmol/L (3.5-5.0)
[2021-02-09] MEDS: IBUPROFEN 400 MG TABLET PO PRN (06:00)
[2021-02-09] MEDS: PANTOPRAZOLE 40 MG TABLET PO SCH (06:15)
[2021-02-09] MEDS: CALCIUM CARBONATE CHEW 500 MG TABLET PO PRN (06:15)
--- NOTE | 2021-02-09 08:00 | Discharge Plan ---
Discharge Plan Problem Reviewed?: Yes Disposition: Home, Self Care Condition: Fair Prescriptions: Ciprofloxacin [Cipro] 500 mg PO Q12H #44 tablet Diet: Regular Activity Restrictions: Activity as Tolerated Shower Restrictions: No Driving Restrictions: No Health Concerns: You presented to our emergency room with fever. Your concern was based on the fact that you have had a recent bladder resection for cancer as well as the neobladder reconstruction. Your urologist shared with us that there was trauma suffered with one of the cystoscopy surgeries. Complication was air that accumulated underneath the skin of your abdominal wall and the front of your thighs. We found you to have a urinary tract infection with a bacteria called Enterococcus faecalis. Both blood and urine were positive. This is considered sepsis with bacteremia. Your stated that she had spoken to Dr. Craven and he did not feel you needed admission. However we did feel you met the criteria of sepsis with severe infection and admitted you. You responded very well to the antibiotics. Your white cell count has started at 21,000 and is now 7000. A low blood pressure of 90/60 is now normal at 130/82. All the criteria that you had for sepsis with impending shock have resolved. We have spoken to your urology office, and I spoke to Dr. Thorne who is on-call for Dr. Craven. There are no new recommendations. They are comfortable with you going home on an antibiotic called Wardro for a total of 14 days of therapy. Plan of Treatment: To complete a total of 14 days of therapy with an antibiotic. To follow-up with Dr. Craven. His office is canceled the appointment that you had today. Dr. Thorne explained that the trauma with the cystoscopy and the subsequent air formation needs time to heal and they would rather see you at a later date. Dr. Craven in his office will coordinate with you of when that visit will be. While you are on the antibiotic, we recommend an [id number] probiotic to take every day. Care Goals: To be symptom-free of current urinary tract infection Assessment: Patient understands care goals. Will follow through with urology. had requested that ciprofloxacin be called into hospital pharmacy. However that pharmacy is currently unavailable to the outpatient setting. Prescriptions were called [facility] No Smoking: If you smoke, Please STOP! Call for help. Follow-up with: Dilan Bustillos MD [Primary Care Provider] -
[2021-02-09] MEDS: SACCHAROMYCES BOULARDII 250 MG CAPSULE PO SCH (09:00)
[2021-02-09] MEDS ORDERED: CYANOCOBALAMIN 500 MCG TABLET PO SCH (09:00)
[2021-02-09] MEDS ORDERED: CHOLECALCIFEROL 25 MCG TABLET PO SCH (09:00)
[2021-02-09] MEDS: MULTIVITAMIN W/MINERALS TABLET PO SCH (09:00)
[2021-02-09] MEDS: FERROUS GLUCONATE 324 MG TABLET PO SCH (09:00)
[2021-02-09] MEDS: SENNA 8.6 MG TABLET PO SCH (09:01)
[2021-02-09] MEDS: CLOBETASOL 0.05% OINT 15 GM TUBE TOP SCH ×2 (09:06→09:21)
[2021-02-09] MEDS: PIPERACILLIN/TAZOBACTAM 3.375 GM in SODIUM CHLORIDE 0.9% MINIBAG 100 ML IV SCH (09:09)
[2021-02-09 09:15] VITALS: BP 118/72
--- NOTE | 2021-02-09 19:22 | DISCHARGE SUMMARY ---
"Discharge Summary Admit Date: 02/05/21 Discharge Date: 02/09/21 Discharging Provider: Ana Velazco MD Primary Care Provider: Dilan Bustillos MD Code Status: Attempt Resuscitation Condition at Discharge: Fair Discharge Disposition: 01 Home, Self Care - DIAGNOSES Discharge Diagnoses with Status of Each Condition: 1. Sepsis 2. Complicated UTI 3. Enterococcus bacteremia 4. Adjustment disorder 5. History of bladder cancer 6. Acute kidney injury 7. Anemia due to B12 and iron deficiency - HPI History of Present Illness: Patient is a 60-year-old male who [facility]. He has history of bladder cancer on chemotherapy and recently underwent bladder resection with neobladder at the [facility] 17 days ago. He was in the hospital at [facility] for 1 week after the procedure. 2 days ago he had a follow-up appointment with his neurologist where a stress test of the bladder with contrast infusion was done. It is reported that there was a small leak so both Damon and suprapubic catheters were left in place. Last night the patient started experiencing chills and had a fever with a temperature 101.7F. He took a dose of Cipro and then presented to the emergency department at the advice of the nurse practitioner with the urology group. In the ED work-up included a CBC which showed a white blood cell count of 21.7. T-max so far in the hospital is 38.7C. He also had a CT of the abdomen pelvis which showed postsurgical sequelae. There was no obstructing bilateral renal calculi. New mild left hydronephrosis. No change in mild right hydronephrosis. Subcutaneous soft tissue gas within the abdomen and pelvis anteriorly, extending into the proximal thigh and scrotum. It was thought that this findings are consistent with postsurgical sequela in recent history of surgery. However, infection with a gas producing organism could also produce this appearance in the appropriate clinical surgery. Urine analysis also showed large leukocyte esterase too numerous to count red blood cells and greater than 25 WBCs. Few bacteria were also noted. The urine was noted to be cloudy. He was started on Zosyn and presented for admission for further treatment. At bedside he is very somnolent due to recent administration of dilaudid. He denied chest pain or dyspnea. 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 Chest x-ray with no acute findings. 2. Abdomen pelvis CT with postsurgical sequelae. No obstructing bilateral renal calculi. New mild left hydronephrosis. Subcutaneous soft tissue gas within the abdomen and pelvis anteriorly, extending into the proximal thighs and scrotum. Hiatal hernia. 3. Second abdomen pelvis CT done due to persistent infection with status post neobladder leak. Trace bilateral pleural effusions. Moderate hiatal hernia. Liver and spleen normal. Nonobstructing bilateral renal stones seen. Mild bilateral hydronephrosis. Bowel loops with normal wall thickness and caliber. No adenopathy. Continued soft tissue gas seen involving the soft tissues of the anterior abdominal wall including the anterior thighs. 3. Blood cultures February 05 with Enterococcus faecalis. Blood cultures repeated February 07 without growth after 5 days. 4. Urine culture February 05 with Enterococcus faecalis. - HOSPITAL COURSE Hospital Course: Eventually his sepsis resolved. Despite broad-spectrum antibiotics he continued to have a fever and white cell count elevation. He was started on Zosyn and vancomycin but the vancomycin was switched to ampicillin and then back to Zosyn again. The gas that was seen in his anterior abdominal wall was felt to be due to trauma from surgery and there is no evidence of necrotizing fasciitis on exam. No tenderness no redness no heat. He was noted that his bladder cancer was resected and that he had a neobladder with a new indwelling catheter and suprapubic catheter. is very worried about the patient's possible depression. I spent 30 minutes discussing possible depression and that every time he went in the room the lights were off. He smiled and says that he is always been that way. He even likes working that way. He is a very introverted person and likes calm less. While he is not happy about the circumstances that are surrounding him right now, he does not feel that he is severely depressed other than normal depression of someone having to go through this. Acute kidney injury resolved. The case was discussed with his urology office, on-call provider and there were no recommendations to change therapy. The patient eventually was able to go home. Sepsis criteria resolved. He was eating normally. White cell count had come down to normal. At discharge temperature is 36.6. Pulse 72. Blood pressure 118/72. Respirations 16. 96% on room air. He was alert oriented white male who looks stated age. Neck was supple. Lungs were clear to auscultation and his respiratory rate was slow and unlabored. He had a regular rate and rhythm. And abdomen that had slight suprapubic tenderness but no rebound or guarding and normal bowel sounds. During his stay he had explosive diarrhea where he was incontinent. That had resolved. Extremities are without edema. Greater than 30 minutes was spent coordinating discharge. The patient is asked to follow-up with his urologist. Urology office is told is that he they already have an appointment ready for him. He is also asked to follow-up with his primary care provider. - ALLERGIES Allergies/Adverse Reactions: Allergies Allergy/AdvReac Type Severity Reaction Status Date / Time No Known Drug Allergies Allergy Verified 02/15/17 10:20 - MEDICATIONS Home Medications: Ambulatory Orders Medication Instructions Recorded Confirmed Acetaminophen [Acetaminophen Extra 1,000 mg PO Q6HR PRN 02/05/21 02/05/21 Strength] Aspirin/Acetaminophen/Caffeine 1 tab PO Q4HR PRN 02/05/21 02/05/21 [Excedrin Migraine Caplet] Clobetasol 0.05% Oint [Temovate 1 applic TOP DAILY 02/05/21 02/05/21 0.05% Oint] Enoxaparin [Lovenox] 0.4 ml SQ QPM 02/05/21 02/06/21 Ibuprofen [Motrin] 600 mg PO Q6HR 02/05/21 02/05/21 Omeprazole Magnesium 20 mg PO DAILY 02/05/21 02/05/21 Prochlorperazine Maleate 10 mg PO Q6HR PRN 02/05/21 02/05/21 [Compazine] Senna [Senokot] 2 tab PO BID 02/05/21 02/05/21 Tbo-Filgrastim [Granix] 0.8 ml SQ DAILY 02/05/21 02/05/21 dexAMETHasone [Decadron] 8 mg PO DAILY 02/05/21 02/05/21 ondansetron HCL [Ondansetron HCl] 8 mg PO Q8HR PRN 02/05/21 02/05/21 oxyCODONE [Roxicodone] 5 mg PO Q8HR PRN 02/05/21 02/05/21 polyethylene glycoL 3350 [Miralax] 17 gm PO DAILY PRN 02/05/21 02/05/21 Ciprofloxacin [Cipro] 500 mg PO Q12H #44 tablet 02/08/21 - LABS Result Diagrams: 02/09/21 05:30 02/09/21 05:30 - SEPSIS Current Stage of Sepsis: Resolved Possible source of Sepsis: Genitourinary Sepsis Criteria: Recorded Temperature greater than 38.3C or Less than 36C, Recorded Heart Rate greater than 90 bpm, WBC count greater than 12,000 or less than 4000"
== END 2021-02-09 12:10 | disposition home or self-care (01) | DRG 872 ==
LOC: ED 15:11 → MS2 18:33
PROVIDERS: ADMIT Internal Medicine; ATTEND Specialist
DX: A41.81 Sepsis due to Enterococcus (principal); N39.0 Urinary tract infection, site not specified; N17.9 Acute kidney failure, unspecified; N13.30 Unspecified hydronephrosis; C67.9 Malignant neoplasm of bladder, unspecified; Z90.6 Acquired absence of other parts of urinary tract; D50.9 Iron deficiency anemia, unspecified; D51.9 Vitamin B12 deficiency anemia, unspecified; Z96.0 Presence of urogenital implants; R19.7 Diarrhea, unspecified; N99.89 Other postprocedural complications and disorders of genitourinary system; Z66 Do not resuscitate; K21.9 Gastro-esophageal reflux disease without esophagitis; F43.21 Adjustment disorder with depressed mood
CPT/HCPCS: 0202U; 36415; 71045; 74177; 80048; 80053; 81001; 82274; 82607; 82728; 83540; 83605; 83615; 84466; 85018; 85025; 85045; 86850; 86900; 86901; 86920; 87040; 87077; 87086; 87150; 87181; 87493; 96365; 99284; 99285; A9270; J1170; J1650; J3370; Q9967; 80202

== ENCOUNTER 2023-08-15 09:34 | Outpatient (CLI) | payer BC ==
[2023-08-15 16:04] LABS: ALBUMIN 4.2 g/dL (3.2-5.5); ALKALINE PHOSPHATASE 72 IU/L (42-121); ALT ALANINE AMINOTRANSFERASE 17 IU/L (10-60); AST ASPARTATE AMINOTRANSFERASE 18 IU/L (10-42); BILIRUBIN,DIRECT < 0.10 mg/dL (0.03-0.18); BILIRUBIN,TOTAL 0.6 mg/dL (0.2-1.0); BUN - BLOOD UREA NITROGEN 20 mg/dL (6-20); CREATININE 1.3 mg/dL (0.6-1.3); GFR - MDRD 56 (>89); TOTAL PROTEIN 6.9 g/dL (6.4-8.9)
== END 2023-08-15 09:35 | disposition home or self-care (01) ==
LOC: LAB.S 09:34
PROVIDERS: ATTEND Physician Assistant Medical
DX: B35.1 Tinea unguium (principal)
CPT/HCPCS: 36415; 80076; 82565; 84520

== ENCOUNTER 2023-11-10 08:51 | Outpatient (CLI) | payer BC ==
[2023-11-10 16:25] LABS: ALBUMIN 4.5 g/dL (3.2-5.5); ALKALINE PHOSPHATASE 79 IU/L (42-121); ALT ALANINE AMINOTRANSFERASE 16 IU/L (10-60); AST ASPARTATE AMINOTRANSFERASE 17 IU/L (10-42); BILIRUBIN,DIRECT < 0.10 mg/dL (0.03-0.18); BILIRUBIN,TOTAL 0.4 mg/dL (0.2-1.0); BUN - BLOOD UREA NITROGEN 17 mg/dL (6-20); CREATININE 1.4 mg/dL (0.6-1.3); GFR - MDRD 52 (>89); TOTAL PROTEIN 7.1 g/dL (6.4-8.9)
== END 2023-11-10 08:52 | disposition home or self-care (01) ==
LOC: LAB.S 08:51
PROVIDERS: ATTEND Physician Assistant Medical
DX: B35.1 Tinea unguium (principal)
CPT/HCPCS: 36415; 80076; 82565; 84520

== ENCOUNTER 2024-01-03 08:08 | Outpatient (CLI) | payer BC ==
[2024-01-03 16:40] LABS: ALBUMIN 4.5 g/dL (3.2-5.5)
[2024-01-03 16:46] LABS: ALKALINE PHOSPHATASE 81 IU/L (42-121); ALT ALANINE AMINOTRANSFERASE 15 IU/L (10-60); AST ASPARTATE AMINOTRANSFERASE 17 IU/L (10-42); BILIRUBIN,DIRECT < 0.10 mg/dL (0.03-0.18); BILIRUBIN,TOTAL 0.5 mg/dL (0.2-1.0); BUN - BLOOD UREA NITROGEN 20 mg/dL (6-20); CREATININE 1.4 mg/dL (0.6-1.3); GFR - MDRD 52 (>89)
== END 2024-01-03 08:09 | disposition home or self-care (01) ==
LOC: LAB.S 08:08
PROVIDERS: ATTEND Physician Assistant Medical
DX: B35.1 Tinea unguium (principal)
CPT/HCPCS: 36415; 80076; 82565; 84520